=== PATIENT | male | born 1940 | race Caucasian/White ===

== ENCOUNTER → 2017-03-02 | Outpatient (CLI) | payer BC ==
[~2017-03-02] MED LIST: ASPCH81; FLNIN
[2017-03-02 09:52] LABS: ALT/SGPT 26 U/L (12-78); AST/SGOT 20 U/L (15-37); BLOOD UREA NITROGEN 15 mg/dl (7-18); CALCIUM 8.3 mg/dl (8.5-10.1); CARBON DIOXIDE 31 mmol/L (21-32); CHLORIDE 106 mmol/L (98-107); GLUCOSE 88 mg/dl (70-99); POTASSIUM 4.5 mmol/L (3.5-5.1); SODIUM 142 mmol/L (136-145)
[2017-03-02 09:54] LABS: CHOLESTEROL 130 mg/dl (0-200); HDL CHOLESTEROL 43 mg/dl; LDL CHOLESTEROL CALCULATED 75 mg/dl; TRIGLYCERIDES 59 mg/dl (0-150); VERY LOW DENSITY LIPOPROT CALC 12 mg/dl
== END | disposition home or self-care (01) ==
LOC: C.LAB1850 07:55
PROVIDERS: ATTEND Internal Medicine Cardiovascular Disease
DX: E78.00 Pure hypercholesterolemia, unspecified (principal); I10 Essential (primary) hypertension

== ENCOUNTER → 2017-08-28 | Outpatient (CLI) | payer BC ==
[2017-08-28 10:24] LABS: ALT/SGPT 29 U/L (12-78); AST/SGOT 25 U/L (15-37); BLOOD UREA NITROGEN 15 mg/dl (7-18); CALCIUM 8.6 mg/dl (8.5-10.1); CARBON DIOXIDE 29 mmol/L (21-32); CHLORIDE 104 mmol/L (98-107); CREATININE 1.18 mg/dl (0.60-1.40); GLUCOSE 89 mg/dl (70-99); POTASSIUM 4.4 mmol/L (3.5-5.1); SODIUM 137 mmol/L (136-145)
[2017-08-28 10:28] LABS: CHOLESTEROL 128 mg/dl (0-200); HDL CHOLESTEROL 42 mg/dl; LDL CHOLESTEROL CALCULATED 72 mg/dl; TRIGLYCERIDES 70 mg/dl (0-150); VERY LOW DENSITY LIPOPROT CALC 14 mg/dl
== END | disposition home or self-care (01) ==
LOC: C.LAB1850 08:44
PROVIDERS: ATTEND Internal Medicine Cardiovascular Disease
DX: I25.10 Atherosclerotic heart disease of native coronary artery without angina pectoris (principal); I10 Essential (primary) hypertension

== ENCOUNTER 2022-04-15 16:25 | Inpatient (IN) ==
[2022-04-15] MEDS ORDERED: SODIUM CHLORIDE 0.9% 250 ML IV PRN (17:00)
--- NOTE | 2022-04-15 17:03 | Emergency Department Note ---
Impression & Plan Severe anemia, MDS (myelodysplastic syndrome), Acute anemia ED Provider Note Name: KYLE LANDRY Age: 81 Sex: M Arrives Via: Walk-In Informant: Patient, ED Provider: Michael Lawson MD Chief Complaint: Anemia Impression: As per impressions above Medical Decision Makin-year-old male with recently diagnosed myelodysplastic syndrome and a history of CAD, hypertension, dyslipidemia, arrives for evaluation of severe anemia diagnosed on outpatient labs and advised to go to the ER by his primary care team. On evaluation patient is quite tired appearing, pale, though vitals are good and he is not complaining any significant chest pain or shortness of breath though does note he does get symptomatic with even mild exertion over the last few days. He is without any recent trauma he has a soft nontender abdomen and he denies any black or bloody stools. His last hemoglobin was done a little over a month ago and was 8 at that time and is now dropped down to 4.5. EKG obtained no acute ischemic findings and other laboratory work is not overly c oncerning. He is severely anemic though and clearly requires transfusion at this point. I discussed at length the risks benefits of transfusion with him and his and they are both comfortable with proceeding. He freely signed blood transfusion consent and he was typed and crossmatched for 2 units with the first being in the ER. He was monitored closely during transfusion and did quite well in fact stating he feels much better than he has in the last month before the first unit was even done. Following for his unit he is not overloaded he is breathing comfortably and his vitals are okay. We will proceed with second unit which was started and then he was transferred to the floor for further management. Hospitalist had evaluated him during transfusion and brought him in for further monitoring. Prior Medical Record and Triage/Nursing Notes reviewed by Me Additional history obtained from chart Differentials:Infection, dehydration, metabolic abnormality, hypo/hyperglycemia, electrolyte disturbance, anemia, hypoxia, cardiac sources, intracerebral event, toxicologic, neurologic, as well as other pathologies. Vital Signs: reviewed and remarkable for no significant abnormalities Interventions: 2 units PRBC IV Labs:Reviewed and remarkable for severe anemia EKG:Per My Interpretation: Indication severe anemia shortness of breath with exertion: NSR 70 bpm, qtc 457. No Ectopy. No Ischemia. Compared to EKG 5/4/22, no significant changes. Consults: Dr. Wilder MCKAY Hospitalist Plan: Disposition:Hospitalization. Condition: Good History of Present Illness:81-year-old male arrives for evaluation of low hemoglobin. Patient with a recent diagnosis of myelodysplastic syndrome and was to start treatments in the next few days however on pretreatment labs he was severely anemic and sent to the ER for evaluation. Patient notes he has been increasingly short of breath with any exertion. With sitting he feels better, but even with a brief exertion he gets severely short of breath. He notes he has been feeling weak to the point where he even had a collapsed to the floor a week ago without any fall or trauma other than disorder slowly going to the floor. He denies any headache, neck pain, bleeding, bruising, black/bloody stools, abdominal pain, epigastric discomfort, nausea, vomiting, syncope, chest pain, any other signs or symptoms. He has had no recent fevers, chills or infectious etiology. Exertion makes worse and rest makes better. No medications prior to arrival. Patient notes that his been dealing with bilateral leg swelling from below his knees for the last 6 months and it has not change much in the last few months. ROS: See above HPI for pertinent positives & negatives. A total of 10 systems reviewed and were otherwise negative. Past Medical History:CAD, hypertension, DLPa, dysplastic syndrome Past Surgical History:See Below Family History:See Below Social History:See Below Home Medications:See Below Allergies:acetaminophen Vitals:Blood Pressure: 112/68, Pulse 73, RR 16, T 36.8C, O2 99% on RA Physical Exam: GENERAL: Patient is tired appearing and in minimal distress. EYES: No scleral icterus, pale conjunctiva, unremarkable pupils. ENT: Mucous membranes moist, no nasal congestion. NECK: No masses appreciated, nomeningismus, trachea is midline. RESPIRATORY: No dyspnea. Clear to auscultation and equal bilaterally. No wheeze, no rhonchi. CARDIOVASCULAR: Regular rate and rhythm.No murmurs, rubs, gallops appreciated. GASTROINTESTINAL: Abdomen soft, non-tender, no peritonitis.Bowel sounds positive.No masses appreciated. BACK: No midline tenderness, no CVA tenderness EXTREMITIES: Normal motion all extremities, no cyanosis, 2+ edema pitting lower legs NEUROLOGIC: Alert and oriented, no acute motor or sensory deficits, no focal weakness, cranial nerves grossly intact. SKIN: No rash, no jaundice, no diaphoresis. PSYCH: Appropriate GCS: 15 ED Course: Times/Reassessments: Patient rapidly improving with initial transfusion and improving throughout. Michael Lawson MD Past Med/Surg History Medical History Abnormal CT scan, chest CAD (coronary artery disease) Hypercholesterolemia Hypertension MDS (myelodysplastic syndrome) Surgical History H/O cataract extraction bilateral History of bone marrow biopsy Hx of CABG 3-vessel, [facility] Family History Mother , in her 90s Parkinsons disease Social History (Updated 04/15/22 @ 19:17 by Esteban Hdz) Smoking Status: Never smoker Hx Alcohol Use: No Hx Substance Use: No Preferred Language: Indonesian Communication Ability: Effective Online Producer Required: Yes Beliefs That Will Affect Care: None marital status: Current Living Situation: Spouse current occupational status: retired 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 [employer] How many Children do You have: 4 How many Children do You have Comment: 1 son is Other Information That Helps Us Care for You: No Feels Safe at Home: Yes Safety Concerns: Feels Safe At This Time Assistive Devices: None Allergies Allergies Allergy/AdvReac Type Severity Reaction Status Date / Time acetaminophen [From Tylenol] AdvReac Unknown Rash--PT Verified 04/15/22 19:38 NOT SURE THIS IS A ALLERGY Home Meds Home Medications Medication Instructions Recorded Confirmed aspirin 325 mg tablet 325 mg PO DAILY 07/01/19 04/15/22 Epsom Salt Soak 1 ea topical QPM 04/15/22 04/15/22 Palmers Cream 1 applic topical QPM rash 04/15/22 04/15/22 Previous Rx's Medication Instructions Recorded pantoprazole 20 mg tablet,delayed 20 mg PO BID #180 tabs 09/03/21 release metoprolol succinate 25 mg 12.5 mg PO DAILY #90 tabs 11/02/21 tablet,extended release 24 hr simvastatin 40 mg tablet 40 mg PO QPM #90 tabs 11/02/21 melatonin 5 mg capsule 5 mg PO HS PRN sleep #30 caps 04/16/22 zinc sulfate 50 mg zinc (220 mg) 50 mg PO DAILY 12 days #12 caps 04/16/22 capsule Results & Data (ED) Vital Signs Vital Signs - 24 hr 04/15/22 16:29 04/15/22 18:40 04/15/22 18:00 Temperature 36.8 C 37.1 C Temperature Source Temporal Artery Scan Oral Pulse Rate 73 72 Pulse Rate [Apical] 67 Pulse Rhythm [Apical] Regular Respiratory Rate 16 16 16 Respiratory Effort / Characteristics Non-Labored Respiratory Depth Normal Blood Pressure 112/68 138/77 Blood Pressure [Left Arm] 138/77 Blood Pressure Mean 82 97 Blood Pressure Mean [Left Arm] 97 Blood Pressure Position Sitting Pulse Oximetry 99 97 96 Oxygen Delivery Method Room Air Room Air Sepsis Recent Fever Within 48 Hours No Sepsis New/Unexplained Change in Mental Status No Sepsis Action Taken by Nursing No Action Required 04/15/22 18:58 04/15/22 19:13 04/15/22 19:43 Temperature 36.4 C L 36.7 C Temperature Source Oral Oral Pulse Rate 74 70 75 Pulse Rate [Apical] Pulse Rhythm [Apical] Respiratory Rate 16 16 22 Respiratory Effort / Characteristics Respiratory Depth Blood Pressure 133/75 121/69 129/62 Blood Pressure [Left Arm] Blood Pressure Mean 94 86 84 Blood Pressure Mean [Left Arm] Blood Pressure Position Pulse Oximetry 99 98 95 Oxygen Delivery Method Sepsis Recent Fever Within 48 Hours Sepsis New/Unexplained Change in Mental Status Sepsis Action Taken by Nursing 04/15/22 20:48 04/15/22 21:08 04/15/22 21:23 Temperature 36.7 C 37.2 C Temperature Source Oral Oral Pulse Rate 72 84 72 Pulse Rate [Apical] Pulse Rhythm [Apical] Respiratory Rate 18 16 16 Respiratory Effort / Characteristics Respiratory Depth Blood Pressure 121/65 128/59 L 119/61 Blood Pressure [Left Arm] Blood Pressure Mean 83 82 80 Blood Pressure Mean [Left Arm] Blood Pressure Position Pulse Oximetry 95 93 95 Oxygen Delivery Method Sepsis Recent Fever Within 48 Hours Sepsis New/Unexplained Change in Mental Status Sepsis Action Taken by Nursing 04/15/22 21:38 04/15/22 22:08 Temperature 37.1 C 36.7 C Temperature Source Oral Oral Pulse Rate 72 70 Pulse Rate [Apical] Pulse Rhythm [Apical] Respiratory Rate 18 18 Respiratory Effort / Characteristics Respiratory Depth Blood Pressure 114/64 113/72 Blood Pressure [Left Arm] Blood Pressure Mean 80 85 Blood Pressure Mean [Left Arm] Blood Pressure Position Pulse Oximetry 96 95 Oxygen Delivery Method Sepsis Recent Fever Within 48 Hours Sepsis New/Unexplained Change in Mental Status Sepsis Action Taken by Nursing Laboratory Data Result diagrams: 04/16/22 08:56 04/16/22 08:56 Lab Results 04/15/22 04/15/22 04/15/22 Range/Units 14:56 17:17 17:17 WBC 5.19 (4.8-10.8) K/ul RBC 1.31 L (4.63-6.08) M/uL Hgb 4.3 L* (14.0-18.0) g/dl Hct 15.3 L* (40.1-51.0) % MCV 116.8 H (80.0-100.0) fL MCH 32.8 (25.0-34.0) pg MCHC 28.1 L (32.0-36.0) g/dL RDW Std Deviation 71.6 H (36.4-46.3) fL RDW Coeff of Dany 17.4 H (11.5-14.5) % Plt Count 96 L (130-400) K/uL MPV 11.7 (9.4-12.4) fL Immature Gran % (Auto) 6.4 % Neut % (Auto) 43.4 % Lymph % (Auto) 43.5 % [place] % (Auto) 6.7 % Eos % (Auto) 0.0 % Baso % (Auto) 0.0 % Neut # (Auto) 2.25 (1.4-6.5) K/uL Lymph # (Auto) 2.26 (1.2-3.4) K/uL [place] # (Auto) 0.35 (0.24-0.82) K/uL Eos # (Auto) 0.00 (0-0.50) K/uL Baso # (Auto) 0.00 (0-0.2) K/uL Immature Gran # (Auto) 0.33 H (0.00-0.02) K/uL Absolute Nucleated RBC 0.28 H (0-0) K/uL Nucleated RBC % (auto) 5.4 % Sodium (136-145) mmol/L Potassium (3.5-5.1) mmol/L Chloride (98-107) mmol/L Carbon Dioxide (21-32) mmol/L Anion Gap (3-11) BUN (6-23) mg/dl Creatinine (0.6-1.4) mg/dl Est Cr Clr Drug Dosing ml/min Est GFR ( Amer) ml/min Est GFR (Non-Af Amer) ml/min BUN/Creatinine Ratio (10-20) Glucose (70-99(Fasting)) mg/dl Calcium (8.5-10.1) mg/dl Magnesium (1.7-2.4) mg/dl Total Bilirubin (0.2-1.0) mg/dl Direct Bilirubin (0-0.2) mg/dl AST (13-39) U/L ALT (7-52) U/L Alkaline Phosphatase (34-104) U/L Troponin I High Sens (0-20) pg/ml Total Protein (6.0-8.3) gm/dl Albumin (3.4-5.0) gm/dl SARS-CoV-2, RNA, NAAT (NEGATIVE) Blood Type A Negative Blood Type Recheck A Negative Antibody Screen NEGATIVE Crossmatch See Detail 04/15/22 04/15/22 Range/Units 17:17 18:07 WBC (4.8-10.8) K/ul RBC (4.63-6.08) M/uL Hgb (14.0-18.0) g/dl Hct (40.1-51.0) % MCV (80.0-100.0) fL MCH (25.0-34.0) pg MCHC (32.0-36.0) g/dL RDW Std Deviation (36.4-46.3) fL RDW Coeff of Dany (11.5-14.5) % Plt Count (130-400) K/uL MPV (9.4-12.4) fL Immature Gran % (Auto) % Neut % (Auto) % Lymph % (Auto) % [place] % (Auto) % Eos % (Auto) % Baso % (Auto) % Neut # (Auto) (1.4-6.5) K/uL Lymph # (Auto) (1.2-3.4) K/uL [place] # (Auto) (0.24-0.82) K/uL Eos # (Auto) (0-0.50) K/uL Baso # (Auto) (0-0.2) K/uL Immature Gran # (Auto) (0.00-0.02) K/uL Absolute Nucleated RBC (0-0) K/uL Nucleated RBC % (auto) % Sodium 136 (136-145) mmol/L Potassium 3.9 (3.5-5.1) mmol/L Chloride 108 H (98-107) mmol/L Carbon Dioxide 23 (21-32) mmol/L Anion Gap 5 (3-11) BUN 26 H (6-23) mg/dl Creatinine 1.49 H (0.6-1.4) mg/dl Est Cr Clr Drug Dosing 40.1 ml/min Est GFR ( Amer) 50.3 ml/min Est GFR (Non-Af Amer) 43.4 ml/min BUN/Creatinine Ratio 17.4 (10-20) Glucose 77 (70-99(Fasting)) mg/dl Calcium 8.0 L (8.5-10.1) mg/dl Magnesium 2.2 (1.7-2.4) mg/dl Total Bilirubin 0.4 (0.2-1.0) mg/dl Direct Bilirubin 0.0 (0-0.2) mg/dl AST 19 (13-39) U/L ALT 10 (7-52) U/L Alkaline Phosphatase 74 (34-104) U/L Troponin I High Sens 10.5 (0-20) pg/ml Total Protein 7.4 (6.0-8.3) gm/dl Albumin 3.4 (3.4-5.0) gm/dl SARS-CoV-2, RNA, NAAT NEGATIVE (NEGATIVE) Blood Type Blood Type Recheck Antibody Screen Crossmatch Administered Medications Discontinued Medications Furosemide (Furosemide Inj 20 Mg/2 Ml Vial) 20 mg IV 0000 MARGO Stop: 04/16/22 04:00 Last Admin: 04/16/22 01:10 Dose: 20 mg Documented By: BPY Furosemide (Furosemide 20 Mg Tab) 20 mg PO NOW ONE Stop: 04/16/22 14:17 Last Admin: 04/16/22 15:58 Dose: 20 mg Documented By: ES Metoprolol Succinate (Metoprolol Succ 25mg Ext Rel Tab) 12.5 mg PO DAILY MARGO Stop: 05/16/22 08:59 Last Admin: 04/16/22 08:36 Dose: 12.5 mg Documented By: RIC Pantoprazole Sodium (Pantoprazole 40 Mg Tab) 40 mg PO BID MARGO Stop: 05/15/22 23:14 Last Admin: 04/16/22 08:36 Dose: 40 mg Documented By: Admin: 04/16/22 01:10 Dose: 40 mg Documented By: YOANDY Potassium Chloride (Potassium Chloride Crtab 20 Meq Tabcr) 20 meq PO NOW STA Stop: 04/16/22 14:17 Last Admin: 04/16/22 15:58 Dose: 20 meq Documented By: RIC Simvastatin (Simvastatin 40 Mg Tab) 40 mg PO QPM MARGO Stop: 05/15/22 23:14 Last Admin: 04/16/22 01:11 Dose: 40 mg Documented By: YOANDY Zinc Sulfate (Zinc Sulfate 220 Mg Capsule) 220 mg PO QAM MARGO Stop: 05/15/22 23:14 Last Admin: 04/16/22 08:36 Dose: 220 mg Documented By: Admin: 04/16/22 01:12 Dose: 220 mg Documented By: YOANDY Imaging Data Radiologist's Impression: Chest X-Ray 04/15/22 19:22 XR chest 2V PA/lateral HISTORY: b/l basilar rales COMPARISON: Chest 12/19/2021. FINDINGS: No pneumothorax. No pleural effusions. The heart remains mildly enlarged. There are poststernotomy changes. Old, healed left-sided rib fractures. The upper lung zones remain clear. Interstitial thickening and hazy bibasilar airspace opacities have slightly progressed. No evidence for pulmonary edema. IMPRESSION: 1. Mild interstitial thickening and hazy bibasilar airspace opacities have slightly progressed. This likely represents a pneumonia. 2. Stable cardiomegaly. ACT 112: Negative or not required by law. Electronically signed by: Bharat Bowen M.D. 04/15/2022 8:02 PM Discharge Plan Visit Data Chief Complaint: Referred by Doctor Stated Complaint: [facility] ED Provider: Michael Lawson Discharge Problem: Severe anemia, MDS (myelodysplastic syndrome), Acute anemia Patient Disposition: Admitted As Inpatient Discharge Instructions Interventions: ED Discharge Assessment Last Done: 04/15/22 22:50
[2022-04-15 17:37] LABS: White Blood Count 5.19 K/ul (4.8-10.8)
[2022-04-15 17:45] LABS: Hematocrit (blood only) 15.3 % (40.1-51.0); Hemoglobin 4.3 g/dl (14.0-18.0)
[2022-04-15 17:54] LABS: Albumin Level 3.4 gm/dl (3.4-5.0); BUN Creatinine Ratio 17.4 (10-20); Bilirubin,Total 0.4 mg/dl (0.2-1.0); Creatinine Clr Calc Pharmacy 40.1 ml/min; Est GFR (African American) 50.3 ml/min; Est GFR (Non-African American) 43.4 ml/min; Magnesium 2.2 mg/dl (1.7-2.4); Potassium 3.9 mmol/L (3.5-5.1); Total Protein 7.4 gm/dl (6.0-8.3)
[2022-04-15 17:56] LABS: Troponin I High Sensitivity 10.5 pg/ml (0-20)
[2022-04-15 18:15] LABS: Immature Granulocytes # (auto) 0.33 K/uL (0.00-0.02); Immature Granulocytes % (auto) 6.4 %; Lymphocytes # (auto) 2.26 K/uL (1.2-3.4); Lymphocytes % (auto) 43.5 %; Mean Corpuscular Hemoglobin 32.8 pg (25.0-34.0); Mean Corpuscular Hgb Conc 28.1 g/dL (32.0-36.0); Mean Corpuscular Volume 116.8 fL (80.0-100.0); Mean Platelet Volume 11.7 fL (9.4-12.4); Monocytes # (auto) 0.35 K/uL (0.24-0.82); Monocytes % (auto) 6.7 %; Neutrophils # (auto) 2.25 K/uL (1.4-6.5); Neutrophils % (auto) 43.4 %; Nucleated RBC # (auto) 0.28 K/uL (0-0); Nucleated RBC % (auto) 5.4 %; Platelet Count 96 K/uL (130-400); RDW Coefficient of Variation 17.4 % (11.5-14.5); RDW Standard Deviation 71.6 fL (36.4-46.3); Red Blood Count 1.31 M/uL (4.63-6.08)
--- NOTE | 2022-04-15 18:15 | History & Physical Report ---
Date of Service April 15, 2022 Assessment & Plan (1) Symptomatic anemia: Plan: Patient has severe acute/chronic symptomatic anemia as noted throughout the HPI. Baseline Hb is about 8 to 8.5. He has a recent diagnosis of MDS based on bone marrow biopsy. [facility] from earlier in March showed normal B12, folate, and copper levels. His recent TSH was also wnl (January 2022). His acute anemia is likely due to the MDS itself but I cannot rule out other causes such as GI bleeding (he takes daily aspirin as well as 2 excedrin migraine tabs which could set him up for gastritis or PUD). There is no evidence of hemolysis. Plan - * Tx 2 units PRBCs now followed by lasix 20mg IV x 1 * repeat H/H 1 hour post-transfusion * given his significant symptoms (fatigue, dyspnea, etc) along with known coronary artery disease would Tx a 3rd unit if Hb remains <7.5 on recheck * check fecal occult blood * will ask Dr Mistry from [facility] to see him in the am for any additional recommendations * consider IV iron (2) MDS (myelodysplastic syndrome): Plan: Recent diagnosis. Bone marrow bx confirmed (02/2022). B12/folate/copper/TSH levels all wnl. There were 11% blasts on his bone marrow biopsy along with abnormal T cells. All together there is some concern about possible lymphoma as well. Office notes from 04/07/22 discussed initiating 5-azacitibine or decitabine. Will consult Dr Mistry in the am. Transfuse as in #1 above. Consider IV venofer given his low ferritin 33 and absent iron stores on bone marrow biopsy. Defer that decision to Dr Mistry. Repeat full CBC in am. (3) Hypercholesterolemia: Plan: Continue statin. (4) Hypertension: Plan: Continue metoprolol succinate 12.5mg daily. (5) CAD (coronary artery disease): Plan: Some of his exertional symptoms could be from his CAD in the setting of severe acute/chronic anemia. Near-term plan -- transfuse PRBCs. His EKG is stable, however. Continue low-dose BB. Continue statin. Hold aspirin for now until GI bleeding is ruled out. (6) Dyspnea on exertion: Plan: Likely from his severe anemia but can't rule out ischemic heart disease contributing to such. See discussion above. (7) Zinc deficiency: Plan: Could be contributing to chronic rash on his feet. Either way will Rx with zinc sulfate 220mg daily x 14 days. (8) Thrombocytopenia: Plan: 2nd to MDS. B12, folate all wnl. No etoh use. Not on meds that would typically cause low platelets. Trend. (9) DVT prophylaxis: Plan: Due to concern for occult blood loss defer on chemical DVT proph at this time until fecal occult blood is obtained. SCDs in meantime. Plan Left message for pt's on their home voicemail. History of Present Illness Chief Complaint: severe anemia, fatigue/dyspnea with activity Primary Care Provider: Rachid Zamora MD Pleasant 81yo male with history of CAD s/p CABG 3-vessel, hyperlipidemia, and recently diagnosed MDS presents from the [facility] after outpatient blood work revealed a hemoglobin of <5. Patient states he was recently diagnosed with MDS and in early March several treatment options were discussed. He went to the Cancer Center today as a preparatory appointment to begin his MDS treatment next week and during such the severe anemia was found. He was promptly sent to the ER for work-up and gokul tment. Patient states that for about 1 week he has had notable dyspnea on exertion much above his baseline. Typically he can walk about 100-150 feet without much limitation, but over the last week he could only walk half this distance before having to stop and rest because of fatigue/dyspnea. He denies any associated chest pressure to pain. No dizziness or lightheadedness. He denies any abdominal pain, melena, BRBPR or nausea/emesis. Denies hematemesis. Allergies Allergy/AdvReac Type Severity Reaction Status Date / Time acetaminophen [From Tylenol] AdvReac Unknown Rash--PT Verified 04/15/22 19:38 NOT SURE THIS IS A ALLERGY Home Medications Medication Instructions Recorded Confirmed Type aspirin 325 mg tablet 325 mg PO DAILY 07/01/19 04/15/22 History pantoprazole 20 mg tablet,delayed 20 mg PO BID #180 tabs 09/03/21 04/15/22 Rx release metoprolol succinate 25 mg 12.5 mg PO DAILY #90 tabs 11/02/21 04/15/22 Rx tablet,extended release 24 hr simvastatin 40 mg tablet 40 mg PO QPM #90 tabs 11/02/21 04/15/22 Rx Epsom Salt Soak 1 ea topical QPM 04/15/22 04/15/22 History Palmers Cream 1 applic topical QPM rash 04/15/22 04/15/22 History hshikab-[id number]-[id number] 250 2 tab PO QAM 04/15/22 04/15/22 History mg-250 mg-65 mg tablet (Excedrin Migraine) Past Med/Surg History Medical History (Updated 04/15/22 @ 19:23 by Esteban Hdz) Abnormal CT scan, chest CAD (coronary artery disease) Hypercholesterolemia Hypertension MDS (myelodysplastic syndrome) Surgical History (Updated 04/15/22 @ 19:16 by Esteban Hdz) H/O cataract extraction bilateral History of bone marrow biopsy Hx of CABG 3-vessel, [facility] Family History (Updated 04/15/22 @ 19:16 by Esteban Hdz) Mother , in her 90s Parkinsons disease Social History (Updated 04/15/22 @ 19:17 by Esteban Hdz) Smoking Status: Never smoker Hx Alcohol Use: No Hx Substance Use: No Preferred Language: Urdu Communication Ability: Effective Director Sales Required: No Beliefs That Will Affect Care: None marital status: Current Living Situation: Spouse current occupational status: retired 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 [employer] How many Children do You have: 4 How many Children do You have Comment: 1 son is Other Information That Helps Us Care for You: No Feels Safe at Home: Yes Safety Concerns: Feels Safe At This Time Assistive Devices: Glasses Review of Systems Review of Systems: gen - no fevers, chills or weight loss; good appetite eyes - no visual changes HENT - no hearing changes, dysphagia, sore throat, runny nose neck - no pain CV - no chest pain, some palpitations with peak activity, no orthopnea; chronic edema - present since 05/2021 pulm - severe dyspnea on exertion; no cough GI - no abd pain, rectal bleeding, melena, nausea, emesis, diarrhea - no dysuria musculo - denies joint pains skin - chronic rash on b/l feet - mainly dorsum of feet neuro - takes excedrin 2 tabs daily for chronic headaches (usually every AM) for several months endo - denies diabetes psych - has had recent "brain fog" last few days Physical Exam Physical Exam: gen - NAD, pleasant skin - erythematous rashes, macular with some scale - dorsum feet b/l; SEVERE pallor eyes - pallor, PERRL, lens implants b/l HENT - TMs not seen due to cerumen; nose clear; mouth with MMM but mucosal pallor present neck - no JVD, no masses heart - RRR, s1 s2, 1/6 MACIEL LSB lungs - fine dry rales R base only abd - soft NT ND BS+; no HSM ext - 1+ edema b/l, pulses 2+ b/l neuro - strength 5/5 x 4 exts; DTRs 2+ b/l upper & lower ext psych - a/o x 3 lymph - no cervical lymph nodes b/l Results & Data Results & Data ([facility]) Vital Signs (Past 12 Hours) Vital Signs Temp Pulse Resp BP Pulse Ox O2 Del Method 04/15/22 16:29 36.8 C 73 16 112/68 99 Room Air Laboratory Results Laboratory Results - last 24 hr 04/15/22 04/15/22 04/15/22 14:56 17:17 17:17 WBC 5.19 RBC 1.31 L Hgb 4.3 L* Hct 15.3 L* MCV 116.8 H MCH 32.8 MCHC 28.1 L RDW Std Deviation 71.6 H RDW Coeff of Dany 17.4 H Plt Count 96 L MPV 11.7 Immature Gran % (Auto) 6.4 Neut % (Auto) 43.4 Lymph % (Auto) 43.5 Kinney % (Auto) 6.7 Eos % (Auto) 0.0 Baso % (Auto) 0.0 Neut # (Auto) 2.25 Lymph # (Auto) 2.26 Kinney # (Auto) 0.35 Eos # (Auto) 0.00 Baso # (Auto) 0.00 Immature Gran # (Auto) 0.33 H Absolute Nucleated RBC 0.28 H Nucleated RBC % (auto) 5.4 Sodium Potassium Chloride Carbon Dioxide Anion Gap BUN Creatinine Est Cr Clr Drug Dosing Est GFR ( Amer) Est GFR (Non-Af Amer) BUN/Creatinine Ratio Glucose Calcium Magnesium Total Bilirubin Direct Bilirubin AST ALT Alkaline Phosphatase Troponin I High Sens Total Protein Albumin SARS-CoV-2, RNA, NAAT Blood Type A Negative Blood Type Recheck A Negative Antibody Screen NEGATIVE Crossmatch See Detail 04/15/22 04/15/22 17:17 18:07 WBC RBC Hgb Hct MCV MCH MCHC RDW Std Deviation RDW Coeff of Dany Plt Count MPV Immature Gran % (Auto) Neut % (Auto) Lymph % (Auto) Kinney % (Auto) Eos % (Auto) Baso % (Auto) Neut # (Auto) Lymph # (Auto) Kinney # (Auto) Eos # (Auto) Baso # (Auto) Immature Gran # (Auto) Absolute Nucleated RBC Nucleated RBC % (auto) Sodium 136 Potassium 3.9 Chloride 108 H Carbon Dioxide 23 Anion Gap 5 BUN 26 H Creatinine 1.49 H Est Cr Clr Drug Dosing 40.1 Est GFR ( Amer) 50.3 Est GFR (Non-Af Amer) 43.4 BUN/Creatinine Ratio 17.4 Glucose 77 Calcium 8.0 L Magnesium 2.2 Total Bilirubin 0.4 Direct Bilirubin 0.0 AST 19 ALT 10 Alkaline Phosphatase 74 Troponin I High Sens 10.5 Total Protein 7.4 Albumin 3.4 SARS-CoV-2, RNA, NAAT NEGATIVE Blood Type Blood Type Recheck Antibody Screen Crossmatch Diagnostic Findings EKG - my reading - NSR, no ST changes Code Status & VTE Plan Code Status full code PG Care Time/CCT Total # of Minutes Spent Total Time Spent with Patient: Total time spent is greater than 50% in coordination of care (as documented) at patient's floor/unit and/or counseling patient: Coding Level of Care Code 75088 Initial Inpt Care Lvl 2 Diagnoses Symptomatic anemia D64.9 MDS (myelodysplastic syndrome) D46.9 Hypercholesterolemia E78.00 Hypertension I10 CAD (coronary artery disease) I25.10 Dyspnea on exertion R06.00 Zinc deficiency E60 Thrombocytopenia D69.6 DVT prophylaxis Z29.9
--- NOTE | 2022-04-15 20:04 | XRay Report ---
XR chest 2V PA/lateral HISTORY: b/l basilar rales COMPARISON: Chest 12/19/2021. FINDINGS: No pneumothorax. No pleural effusions. The heart remains mildly enlarged. There are postste rnotomy changes. Old, healed left-sided rib fractures. The upper lung zones remain clear. Interstitia l thickening and hazy bibasilar airspace opacities have slightly progressed. No evidence for pulmonar y edema. IMPRESSION: 1. Mild interstitial thickening and hazy bibasilar airspace opacities have slightly progressed. This likely represents a pneumonia. 2. Stable cardiomegaly. ACT 112: Negative or not required by law. Electronically signed by: Bharat Bowen M.D. 04/15/2022 8:02 PM
[2022-04-15] MEDS ORDERED: ONDANSETRON INJ 2 MG/ML 2 ML VIAL IV PRN (23:15)
[2022-04-15] MEDS ORDERED: SIMVASTATIN 40 MG TAB PO SCH (23:15)
[2022-04-15] MEDS ORDERED: NITROGLYCERIN SL 0.4 MG/TAB TAB SL PRN (23:15)
[2022-04-15] MEDS ORDERED: ACETAMINOPHEN 325 MG TAB PO PRN (23:15)
[2022-04-16] MEDS ORDERED: FUROSEMIDE INJ 20 MG/2 ML VIAL IV SCH
[2022-04-16] MEDS: PANTOprazole 40 MG TAB PO SCH ×2 (01:10→08:36)
[2022-04-16] MEDS: ZINC SULFATE 220 MG CAPSULE PO SCH ×2 (01:12→08:36)
[2022-04-16 01:17] LABS: Hematocrit (blood only) 21.6 % (40.1-51.0); Hemoglobin 6.4 g/dl (14.0-18.0)
[2022-04-16] MEDS ORDERED: SODIUM CHLORIDE 0.9% 250 ML IV PRN ×2 (01:53→13:37)
[2022-04-16] MEDS ORDERED: METOPROLOL SUCC 25MG EXT REL TAB PO SCH (09:00)
[2022-04-16 09:25] LABS: Hemoglobin 7.3 g/dl (14.0-18.0); Mean Corpuscular Hemoglobin 30.2 pg (25.0-34.0); Mean Corpuscular Hgb Conc 30.4 g/dL (32.0-36.0); Mean Corpuscular Volume 99.2 fL (80.0-100.0); Mean Platelet Volume 12.6 fL (9.4-12.4); Nucleated RBC # (auto) 0.41 K/uL (0-0); Nucleated RBC % (auto) 5.3 %; Platelet Count 69 K/uL (130-400); RDW Coefficient of Variation 22.5 % (11.5-14.5); RDW Standard Deviation 79.7 fL (36.4-46.3); Red Blood Count 2.42 M/uL (4.63-6.08); White Blood Count 7.67 K/ul (4.8-10.8)
[2022-04-16 09:57] LABS: BUN Creatinine Ratio 14.9 (10-20); Calcium 7.7 mg/dl (8.5-10.1); Creatinine Clr Calc Pharmacy 40.4 ml/min; Est GFR (African American) 50.7 ml/min; Est GFR (Non-African American) 43.7 ml/min; Potassium 3.8 mmol/L (3.5-5.1)
[2022-04-16] MEDS ORDERED: POTASSIUM CHLORIDE CRTAB 20 MEQ TABCR PO STA (14:16)
[2022-04-16] MEDS ORDERED: FUROSEMIDE 20 MG TAB PO ONE (14:16)
--- NOTE | 2022-04-16 16:11 | Discharge Summary ---
Date of Service April 16, 2022 Admission HPI Per Admitting Provider Pleasant 81yo male with history of CAD s/p CABG 3-vessel, hyperlipidemia, and recently diagnosed MDS presents from the [facility] after outpatient blood work revealed a hemoglobin of <5. Patient states he was recently diagnosed with MDS and in early March several treatment options were discussed. He went to the Cancer Center today as a preparatory appointment to begin his MDS treatment next week and during such the severe anemia was found. He was promptly sent to the ER for work-up and treatment. Patient states that for about 1 week he has had notable dyspnea on exertion much above his baseline. Typically he can walk about 100-150 feet without much limitation, but over the last week he could only walk half this distance before having to stop and rest because of fatigue/dyspnea. He denies any associated chest pressure to pain. No dizziness or lightheadedness. He denies any abdominal pain, melena, BRBPR or nausea/emesis. Denies hematemesis. Discharge Data Allergies Allergy/AdvReac Type Severity Reaction Status Date / Time acetaminophen [From Tylenol] AdvReac Unknown Rash--PT Verified 04/15/22 19:38 NOT SURE THIS IS A ALLERGY Consultations 04/15/22 18:10 ED Decision to Admit Stat Hospital Course (1) Symptomatic anemia: Patient has severe acute/chronic symptomatic anemia as noted throughout the HPI. Baseline Hb is about 8 to 8.5. He has a recent diagnosis of MDS based on bone marrow biopsy. Outpatient records from the [facility] from earlier in March showed normal B12, folate, and copper levels. His recent TSH was also wnl (January 2022). His acute anemia is likely due to the MDS itself but I cannot rule out other causes such as GI bleeding (he takes daily aspirin as well as 2 excedrin migraine tabs which could set him up for gastritis or PUD). There is no evidence of hemolysis. Plan - * Tx 2 units PRBCs now followed by lasix 20mg IV x 1 * repeat H/H 1 hour post-transfusion * given his significant symptoms (fatigue, dyspnea, etc) along with known coronary artery disease would Tx a 3rd unit if Hb remains <7.5 on recheck * check fecal occult blood * will ask Dr Mistry from [facility] to see him in the am for any additional recommendations * consider IV iron (2) MDS (myelodysplastic syndrome): Recent diagnosis. Bone marrow bx confirmed (02/2022). B12/folate/copper/TSH levels all wnl. There were 11% blasts on his bone marrow biopsy along with abnormal T cells. All together there is some concern about possible lymphoma as well. Office notes from 04/07/22 discussed initiating 5-azacitibine or decitabine. Will consult Dr Mistry in the am. Transfuse as in #1 above. Consider IV venofer given his low ferritin 33 and absent iron stores on bone marrow biopsy. Defer that decision to Dr Mistry. Repeat full CBC in am. (3) Hypercholesterolemia: Continue statin. (4) Hypertension: Continue metoprolol succinate 12.5mg daily. (5) CAD (coronary artery disease): Some of his exertional symptoms could be from his CAD in the setting of severe acute/chronic anemia. Near-term plan -- transfuse PRBCs. His EKG is stable, however. Continue low-dose BB. Continue statin. Hold aspirin for now until GI bleeding is ruled out. (6) Dyspnea on exertion: Likely from his severe anemia but can't rule out ischemic heart disease contributing to such. See discussion above. (7) Zinc deficiency: Could be contributing to chronic rash on his feet. Either way will Rx with zinc sulfate 220mg daily x 14 days. (8) Thrombocytopenia: 2nd to MDS. B12, folate all wnl. No etoh use. Not on meds that would typically cause low platelets. Trend. (9) DVT prophylaxis: Due to concern for occult blood loss defer on chemical DVT proph at this time until fecal occult blood is obtained. SCDs in meantime. Plan Left message for pt's on their home voicemail. Discharge Plan Discharge Items Patient Disposition: Home - Self-Care Reason For Visit: SYMPTOMATIC ANEMIA Discharge Diagnosis: 1. severe, symptomatic anemia - 4 units of blood given 2. MDS (myelodysplastic syndrome) 3. iron deficiency 4. zinc deficiency 5. low platelets due to your MDS condition Activity: As commented below Activity Comment: light activities as tolerated; avoid strenuous activities Sexual Activity: Wait until after follow-up appointment Exercise/Sports: Wait until after follow-up appointment Driving/Machine Use: Resume 1 day after discharge Non-emergency contact: Primary Care Provider and Oncologist Call non-emergency contact if: you have any medication questions, your symptoms worsen and you have a fever Follow-up/Referrals: Rachid Zamora MD [Primary Care Provider] - (1 week to discuss sleep, headaches, etc.) Luzma Mistry MD [Physician] - (see Dr Mistry or her partners within the next week as scheduled ) Diet: Heart Healthy Addtl Attending Provider Instructions: Dr Colby, You were hospitalized for severe, symptomatic anemia. Your presenting hemoglobin was 4.5. Your anemia is due to the recently diagnosed myelodysplastic syndrome (MDS). The stool was checked for blood and returned negative for such. Recent outpatient vitamin B12, folate, and copper levels were normal. Your recent bone marrow biopsy showed evidence of iron deficiency which is also likely contributing to your anemia. You received a total of 4 units of blood and you tolerated this well. Although your platelets are low (from the MDS) they are acceptable at this time. Your kidney function and electrolytes were normal while here. Recent outpatient blood work did show mild zinc deficiency which could be contributing to your rash on your feet. You received 2 doses of zinc while here. Recommendations - 1. take zinc once daily for 12 additional days. You can start this tomorrow, 04/17/22. I sent a prescription to your pharmacy for you. 2. please follow-up with Dr Mistry within the next 5-7 days to discuss your treatment for your MDS. 3. please discuss iron infusions with Dr Mistry for your iron deficiency. 4. follow-up with Dr Zamora to discuss the chronic headaches and your chronic sleep issues. 5. I would try to avoid taking the Excedrin Migraine on a daily basis. Would use tylenol [id number] instead, if possible. 6. consider taking mamt-qbs-[id number] melatonin 5mg at bedtime as desired for sleep. 7. take it easy and avoid strenuous activities at this time given the anemia, your heart condition, the hot weather outside, etc. Follow-up - see separate section Return to [facility] if - * you have chest pains * you have worsening shortness of breath * you have severe dizziness, lightheadedness, or feel like you could pass out * you have extreme weakness or fatigue * you have fevers over 100 degrees * any other concerns It was our pleasure to care for you at [facility]! Continue to feel better, Esteban Hdz Pending Studies at Discharge: No Stand-Alone Forms: My [facility], Smoking Cessation Medications and DC Order Prescriptions: New zinc sulfate 50 mg zinc (220 mg) capsule 50 mg PO DAILY 12 Days Qty: 12 0RF melatonin 5 mg capsule 5 mg PO HS PRN (Reason: sleep) Qty: 30 0RF Rx Instructions: purchase [id number] Continued pantoprazole 20 mg tablet,delayed release (DR/EC) 20 mg PO BID Qty: 180 3RF simvastatin 40 mg tablet 40 mg PO QPM Qty: 90 3RF metoprolol succinate 25 mg tablet extended release 24 hr 12.5 mg PO DAILY Qty: 90 3RF aspirin 325 mg tablet 325 mg PO DAILY Epsom Salt Soak 1 ea topical QPM Palmers Cream 1 applic topical QPM Discontinued Excedrin Migraine 250-250-65 mg Tablet 2 tab PO QAM Discharge Orders: Discharge Order (Routine); Ordered 04/16/22 Ordered By: Esteban Hdz Admission Data Admit Date/Time: 04/15/22 18:16 Attending Provider: Esteban Hdz Admit Provider: sEteban Hdz Primary Care Provider: Rachid Zamora Other Providers: Esteban Hdz Other Interventions: Discharge Summary Assessment (RN) Last Done: 04/16/22 14:47 Coding Diagnoses Symptomatic anemia D64.9 MDS (myelodysplastic syndrome) D46.9 Hypercholesterolemia E78.00 Hypertension I10 CAD (coronary artery disease) I25.10 Dyspnea on exertion R06.00 Zinc deficiency E60 Thrombocytopenia D69.6 DVT prophylaxis Z29.9
--- NOTE | 2022-04-16 16:39 | Electrocardiogram Report ---
Test Reason : Blood Pressure : / mmHG Vent. Rate : 070 BPM Atrial Rate : 070 BPM P-R Int : 164 ms QRS Dur : 088 ms QT Int : 424 ms P-R-T Axes : 062 -22 026 degrees QTc Int : 457 ms Normal sinus rhythm Normal ECG When compared with ECG of 29-JAN-2022 19:39, Premature atrial complexes are no longer Present Confirmed by Rachid Hammond ([id number]) on 04/16/2022 4:39:24 PM Referred By: Luzma Mistry Confirmed By:Rachid Hammond
== END 2022-04-16 16:30 | disposition home or self-care (01) | DRG 812 ==
LOC: ED 16:25 → 2S 18:16

== ENCOUNTER 2023-04-03 19:28 | Inpatient (IN) ==
[2023-04-03 20:55] LABS: Albumin Globulin Ratio 1.3 (0.9-2); Albumin Level 3.4 gm/dl (3.4-5.0); BUN Creatinine Ratio 35.8 (10-20); Bilirubin,Total 1.2 mg/dl (0.2-1.0); Calcium 8.2 mg/dl (8.6-10.3); Creatinine Clr Calc Pharmacy 41.1 ml/min; Est GFR (Non-African American) 54.3 ml/min; Globulin 2.7 gm/dl (2.5-4.0); Potassium 4.3 mmol/L (3.5-5.1); Total Protein 6.1 gm/dl (6.0-8.3)
[2023-04-03 21:02] LABS: Troponin I High Sensitivity 18.8 pg/ml (0-20)
[2023-04-03 21:22] LABS: Hematocrit (blood only) 17.6 % (42.0-52.0); Mean Corpuscular Hgb Conc 34.1 g/dL (32.0-36.0); Mean Corpuscular Volume 96.7 fL (80.0-100.0); Platelet Count 0 K/uL (130-400); RDW Coefficient of Variation 18.1 % (11.5-14.5); RDW Standard Deviation 61.6 fL (36.4-46.3); Red Blood Count 1.82 M/uL (4.70-6.10); White Blood Count 0.49 K/ul (4.8-10.8)
[2023-04-03 21:34] LABS: INR 1.1 (0.9-1.1); Partial Thromboplastin Ratio 1.1; Partial Thromboplastin Time 30.1 Seconds (21.0-31.0); Prothrombin Time 11.5 Seconds (9.0-12.0)
[2023-04-03] MEDS ORDERED: SODIUM CHLORIDE 0.9% 1000ML 500 ML IV ONE (22:04)
[2023-04-03] MEDS ORDERED: SODIUM CHLORIDE 0.9% 250 ML IV PRN (22:04)
[2023-04-03 22:33] LABS: Magnesium 1.8 mg/dl (1.7-2.4)
--- NOTE | 2023-04-03 22:55 | XRay Report ---
SINGLE VIEW CHEST CLINICAL HISTORY: Dyspnea FINDINGS: An AP, portable, upright chest radiograph is compared to study dated 11/28/2022. Correlation is made with chest CT dated 01/08/2022. The patient is status post midline sternotomy. A right subclav brunilda central venous catheter is new from previous. The heart is enlarged noting atherosclerotic calcif ication of the thoracic aorta. The pulmonary vasculature is noncongested. Bibasilar opacities are sim ilar to previous. No large pleural effusion or pneumothorax is seen. The skeletal structures are oste openic. There are chronic/healed left-sided rib fractures. IMPRESSION: 1. Cardiomegaly without radiographic evidence of congestive failure. 2. Bibasilar opacities are unchanged this could represent scarring/atelectasis/changes of chronic earnestine g disease. Correlate clinically for evidence of a superimposed pneumonitis. Follow-up radiographicall y as needed. ACT 112: Negative or not required by law. Electronically signed by: Vikas Al M.D. 04/03/2023 10:54 PM
--- NOTE | 2023-04-03 23:46 | History & Physical Report ---
Date of Service April 03, 2023 Assessment & Plan (1) Severe thrombocytopenia: Plan: 82 M with myelodysplastic syndrome currently on chemotherapy who presents to the ER from outpatient clinic with anemia. Admitted to the hospital for pancytopenia marked by severe thrombocytopenia and anemia. Pancytopenia -Discovered on outpatient labs. Occurring in the setting of ongoing chemotherapy for AML/myelodysplastic syndrome. Follows with Dr. Kwong of [facility] and Dr. [place] [facility] -WBC 0.49, hemoglobin 6.1, platelet count-0 on admission. Patient hemodynamically stable. -Anemia mildly symptomatic with mild shortness of breath. Saturating well on room air. -S/p 1 unit pRBC, platelet pheresis in the ED on admission. Case discussed with oncologist, who is aware and recommended admission for further management. * Admit to [facility] * Neutropenic precautions ordered. * Cancer Center (oncology) consult placed. * Vitamin B complex * Trend CBC. Transfusion/platelet pheresis support as needed Acute myeloid leukemia/MDS -Chronic; sees Dr. Kwong and [place]. Obrien [place] [facility] Completed latest cycle of chemotherapy (2 weeks on, 2 weeks off) last month with azacitidine/venetoclax. -Bone marrow biopsy from 03/04/2022: Myelodysplastic syndrome with excess blasts- 2, hypercellular marrow with trilineage hematopoiesis, hemophagocytosis and absent iron stores. 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 -AML in remission as of 02/11/2023, per last [facility] oncology note. Last [facility] [place]: "Has achieved an MRD negative remission state following 1 cycle of Aza/Nicko. He has a hypercellular marrow with return of his baseline dysplasia, but this remains MRD negative for AML despite treatment hold." * Holding home venetoclax * Continue antimicrobial prophylaxis: Acyclovir, levofloxacin, posaconazole Coronary artery disease/history of CABG/hypercholesterolemia -CABG x3 in November 2006. Seen twice yearly by Dr. Hammond. -Excellent BP control, LDL cholesterol controlled. CAD considered quiescent on his current medical regimen. * Continue home metoprolol succinate 12.5 mg daily * Continue home rosuvastatin 10 mg daily Zinc deficiency * Continue home zinc sulfate 220 mg p.o. daily. Code: Full code Dispo: Med-Surg FEN/GI: Heart healthy DVT Prophylaxis: PT/OT: No Consults: Hematology-oncology Case Management: No (2) Pancytopenia due to antineoplastic chemotherapy: (3) Hx of CABG: (4) CAD (coronary artery disease): (5) Leukopenia due to antineoplastic chemotherapy: (6) Myelodysplastic syndrome: (7) Symptomatic anemia: (8) Hypercholesterolemia: History of Present Illness Primary Care Provider: Raoul Obrien MD Barron is a very pleasant 82-year-old man with history of recently diagnosed myelodysplastic syndrome currently on chemotherapy who presented from the [facility] (2 weeks on, 2 weeks off) after his hemoglobin was revealed to be 6.1. He usually gets thrice weekly surveillance labs but was unable to this week until Thursday as he had been traveling. His only complaint on admission is severe shortness of breath and swollen legs, which is baseline for him. He does admit to a small headache but attributes that to being hungry. He denies fever, or shaking chills, chest pain, abdominal pain, nausea, or diarrhea/constipation. In the emergency room, he was found to be hemodynamically stable. Repeat CBC showed hemoglobin of 6.0, WBC-0.49, and a platelet count of 0 (usual range 12 K 40 K). Total bilirubin was mildly elevated at 1.2 on CMP. Otherwise, the rest of his metabolic panel was within normal limits or stable. He received platelet pheresis in the ED 1 unit of packed RBCs was ordered but had to be transfused at the time of admission. Allergies Allergy/AdvReac Type Severity Reaction Status Date / Time No Known Allergies Allergy Verified 04/03/23 23:12 Home Medications Medication Instructions Recorded Confirmed Type Epsom Salt Soak 1 ea topical QPM PRN .flare up 04/15/22 04/03/23 History Palmers Cream 1 applic topical QPM rash 04/15/22 04/03/23 History vitamin B complex 1 cap PO DAILY 05/27/22 04/03/23 History metoprolol succinate 25 mg 12.5 mg PO DAILY #90 tabs 10/22/22 04/03/23 Rx tablet,extended release 24 hr pantoprazole 20 mg tablet,delayed 20 mg PO BID #180 tabs 11/01/22 04/03/23 Rx release acetaminophen 500 mg tablet 1,000 mg PO Q6 PRN Pain, Moderate 12/16/22 04/03/23 History acyclovir 200 mg capsule 400 mg PO BID 12/16/22 04/03/23 History ascorbic acid (vitamin C) 500 mg 500 mg PO HS 12/16/22 04/03/23 History tablet (Vitamin C) plfvymd-vntdsqkztmzyn-nypmkddv 250 1 tab PO Q6H PRN Headache 12/16/22 04/03/23 History mg-250 mg-65 mg tablet (Excedrin Migraine) levofloxacin 250 mg tablet 250 mg PO HS 12/16/22 04/03/23 History melatonin 10 mg tablet 10 mg PO HS 12/16/22 04/03/23 History dyzwheco-ns-ycxfy 300 mcg-K 60 1 tab PO DAILY 12/16/22 04/03/23 History mcg-lycop 600 mcg-lutein 300 mcg tablet (Centrum Silver Men) ondansetron 8 mg disintegrating 8 mg PO Q8H PRN Nausea 12/16/22 04/03/23 History tablet polyethylene glycol 3350 17 17 g PO DAILY 12/16/22 04/03/23 History gram/dose oral powder (Miralax) posaconazole 100 mg tablet,delayed 300 mg PO DAILY 12/16/22 04/03/23 History release rosuvastatin 10 mg tablet 10 mg PO DAILY #90 tabs 12/16/22 04/03/23 Rx triamcinolone acetonide 0.025 % 1 applic topical BID PRN Itching 12/16/22 04/03/23 History topical cream venetoclax 10 mg tablet 20 mg PO DAILY 12/16/22 04/03/23 History venetoclax 50 mg tablet 50 mg PO DAILY 12/16/22 04/03/23 History vitamin E 50 unit capsule 1 unit PO DAILY 12/16/22 04/03/23 History zinc sulfate 50 mg zinc (220 mg) 50 mg PO DAILY 12/16/22 04/03/23 History capsule cholecalciferol (vitamin D3) 25 0 mcg PO DAILY 04/03/23 04/03/23 History mcg (1,000 unit) tablet (Vitamin D3) Past Med/Surg History Medical History (Updated 04/04/23 @ 06:33 by Luzma Mistry MD) Abnormal CT scan, chest CAD (coronary artery disease) Hypercholesterolemia Hypertension MDS (myelodysplastic syndrome) Myelodysplastic syndrome Status post fall Fell 12/20/22, reports hitting R side of head, scab noted on head and bruising to majority of R upper extremity. Symptomatic anemia Thrombocytopenia Zinc deficiency Surgical History H/O cataract extraction bilateral History of bone marrow biopsy Hx of CABG 3-vessel, [facility] Family History Mother , in her 90s Parkinsons disease Social History Smoking Status: Never smoker Second Hand Exposure: No; Do You Dip or Chew Tobacco: No; Hx Alcohol Use: No Hx Substance Use: No Preferred Language: Swedish Communication Ability: Effective Wood Barrel Reconditioner Required: No Beliefs That Will Affect Care: None marital status: Current Living Situation: Alone current occupational status: retired 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 HEENT: Normocephalic, atraumatic. EOM intact. Good conjugate gaze. Nares patent. Moist mucosal membranes. Neck: Supple. No lymphadenopathy. Normal ROM. CV: Regular rate and rhythm. Respiratory: Normal respiratory effort. Abdomen: Soft, nondistended abdomen. No bruits heard on auscultation. No tenderness to deep palpation. No guarding or rebound. Extremities: Capillary refill <2 sec. 2+ dp equal bilaterally. 2+ bilateral pedal edema to the mid-lower leg. Multiple ecchymotic patches, diffuse petechiae of bilateral UE + LE noted on exam. Right medial malleolus wound with surrounding violaceous erythema. Neuro: Alert and oriented x3. Skin: Clean, dry, and intact. Results & Data Results & Data Vital Signs (Past 12 Hours) Vital Signs Temp Pulse Pulse Resp BP BP Pulse Ox 04/03/23 23:00 37.2 C 78 20 119/69 98 04/03/23 22:43 37 C 72 18 113/76 100 04/03/23 22:21 82 20 122/69 99 04/03/23 20:25 94 H 04/03/23 20:21 100 04/03/23 20:21 74 100 04/03/23 19:29 37.1 C 83 18 104/66 95 O2 Del Method O2 Flow Rate 04/03/23 23:00 0 04/03/23 22:43 04/03/23 22:21 Room Air 04/03/23 20:25 04/03/23 20:21 Room Air 04/03/23 20:21 Room Air 04/03/23 19:29 Room Air Supervising Physician Co-Signing Physician Notes attending addendum: I have physically seen this patient, have supervised the medical residents activities, and agree with the H&P unless as otherwise noted. Assessment and Plan: AML/MDS- pancytopenia: Neutropenia, anemia, thrombocytopenia Transfusions ordered for PRBCs and platelets as noted, and follow repeat laboratories Neutropenia precautions Continue prophylactic medications: Acyclovir, posaconazole, levofloxacin Consults to oncology CAD/CABG/hypertension- Continue metoprolol succinate with hold parameters hyperlipidemia- Continue rosuvastatin GERD- Continue pantoprazole Remaining orders and notations as noted Resident Activity Tracking Resident Involvement: Resident Care Provided Care Provided: Adult Hospital Medicine
--- NOTE | 2023-04-04 00:26 | Emergency Department Note ---
History of Present Illness General Chief complaint: Abnormal Labs/Diagnostic Testing Stated complaint: REF BY DOC,ABNORMAL LABS Time Seen by Provider: 04/03/23 21:35 History of Present Illness This 82-year-old cancer patient who received chemotherapy for 2 weeks and 2 weeks off presents the ER for referral for abnormal CBC. Patient's received multiple blood transfusions in the past. Last chemotherapy was a week ago. He follows here and at [facility]. Patient denies chest pain, abdominal pain, fever, chills, cough, congestion. He does feel short of breath. He does get short of breath with his severe anemia's. His legs are chronically swollen. Home Medications Medication Instructions Recorded Confirmed Type Epsom Salt Soak 1 ea topical QPM PRN .flare up 04/15/22 04/03/23 History Palmers Cream 1 applic topical QPM rash 04/15/22 04/03/23 History vitamin B complex 1 cap PO DAILY 05/27/22 04/03/23 History metoprolol succinate 25 mg 12.5 mg PO DAILY #90 tabs 10/22/22 04/03/23 Rx tablet,extended release 24 hr pantoprazole 20 mg tablet,delayed 20 mg PO BID #180 tabs 11/01/22 04/03/23 Rx release acetaminophen 500 mg tablet 1,000 mg PO Q6 PRN Pain, Moderate 12/16/22 04/03/23 History acyclovir 200 mg capsule 400 mg PO BID 12/16/22 04/03/23 History ascorbic acid (vitamin C) 500 mg 500 mg PO HS 12/16/22 04/03/23 History tablet (Vitamin C) yoidnpi-aywtedsjlsmob-roglfmny 250 1 tab PO Q6H PRN Headache 12/16/22 04/03/23 History mg-250 mg-65 mg tablet (Excedrin Migraine) levofloxacin 250 mg tablet 250 mg PO HS 12/16/22 04/03/23 History melatonin 10 mg tablet 10 mg PO HS 12/16/22 04/03/23 History wrdmxjlb-nu-bnscg 300 mcg-K 60 1 tab PO DAILY 12/16/22 04/03/23 History mcg-lycop 600 mcg-lutein 300 mcg tablet (Centrum Silver Men) ondansetron 8 mg disintegrating 8 mg PO Q8H PRN Nausea 12/16/22 04/03/23 History tablet polyethylene glycol 3350 17 17 g PO DAILY 12/16/22 04/03/23 History gram/dose oral powder (Miralax) posaconazole 100 mg tablet,delayed 300 mg PO DAILY 12/16/22 04/03/23 History release rosuvastatin 10 mg tablet 10 mg PO DAILY #90 tabs 12/16/22 04/03/23 Rx triamcinolone acetonide 0.025 % 1 applic topical BID PRN Itching 12/16/22 04/03/23 History topical cream venetoclax 10 mg tablet 20 mg PO DAILY 12/16/22 04/03/23 History venetoclax 50 mg tablet 50 mg PO DAILY 12/16/22 04/03/23 History vitamin E 50 unit capsule 1 unit PO DAILY 12/16/22 04/03/23 History zinc sulfate 50 mg zinc (220 mg) 50 mg PO DAILY 12/16/22 04/03/23 History capsule cholecalciferol (vitamin D3) 25 0 mcg PO DAILY 04/03/23 04/03/23 History mcg (1,000 unit) tablet (Vitamin D3) Allergies Allergy/AdvReac Type Severity Reaction Status Date / Time No Known Allergies Allergy Verified 04/03/23 23:12 Past Med/Surg History Medical History Abnormal CT scan, chest CAD (coronary artery disease) Hypercholesterolemia Hypertension MDS (myelodysplastic syndrome) Myelodysplastic syndrome Status post fall Fell 12/20/22, reports hitting R side of head, scab noted on head and bruising to majority of R upper extremity. 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 [employer] How many Children do You have: 4 How many Children do You have Comment: 1 son is Feels Safe at Home: Yes Assistive Devices: None Review of Systems A total of 10 systems reviewed and were otherwise negative Physical Exam Vital Signs Vital Signs - 24 hr 04/03/23 19:29 04/03/23 20:21 04/03/23 20:21 Temperature 37.1 C Temperature Source Oral Pulse Rate 83 Pulse Rate [Finger] 74 Pulse Rhythm Pulse Strength Respiratory Rate 18 Respiratory Effort / Characteristics Non-Labored Spontaneous Respiratory Depth Normal Blood Pressure 104/66 Blood Pressure [Left Arm] Blood Pressure Mean 78 Blood Pressure Mean [Left Arm] Blood Pressure Position Sitting Pulse Oximetry 95 100 100 Oxygen Delivery Method Room Air Room Air Room Air Oxygen Flow Rate Sepsis Recent Fever Within 48 Hours No Sepsis New/Unexplained Change in Mental Status No Sepsis Action Taken by Nursing No Action Required 04/03/23 20:25 04/03/23 22:21 04/03/23 22:43 Temperature 37 C Temperature Source Oral Pulse Rate 94 H 72 Pulse Rate [Finger] 82 Pulse Rhythm Pulse Strength Respiratory Rate 20 18 Respiratory Effort / Characteristics Non-Labored Spontaneous Respiratory Depth Normal Blood Pressure 113/76 Blood Pressure [Left Arm] 122/69 Blood Pressure Mean 88 Blood Pressure Mean [Left Arm] 86 Blood Pressure Position Pulse Oximetry 99 100 Oxygen Delivery Method Room Air Oxygen Flow Rate Sepsis Recent Fever Within 48 Hours Sepsis New/Unexplained Change in Mental Status Sepsis Action Taken by Nursing 04/03/23 23:00 04/03/23 23:15 04/03/23 23:45 Temperature 37.2 C 37.1 C 37.1 C Temperature Source Oral Oral Oral Pulse Rate 78 73 69 Pulse Rate [Finger] Pulse Rhythm Regular Regular Pulse Strength Normal Normal Respiratory Rate 20 16 18 Respiratory Effort / Characteristics Respiratory Depth Blood Pressure 119/69 133/72 134/73 Blood Pressure [Left Arm] Blood Pressure Mean 85 92 93 Blood Pressure Mean [Left Arm] Blood Pressure Position Semi-fowlers Semi-fowlers Pulse Oximetry 98 98 99 Oxygen Delivery Method Oxygen Flow Rate 0 Sepsis Recent Fever Within 48 Hours Sepsis New/Unexplained Change in Mental Status Sepsis Action Taken by Nursing 04/04/23 00:14 Temperature 37.1 C Temperature Source Oral Pulse Rate 68 Pulse Rate [Finger] Pulse Rhythm Regular Pulse Strength Normal Respiratory Rate 18 Respiratory Effort / Characteristics Respiratory Depth Blood Pressure 139/76 Blood Pressure [Left Arm] Blood Pressure Mean 97 Blood Pressure Mean [Left Arm] Blood Pressure Position Semi-fowlers Pulse Oximetry 99 Oxygen Delivery Method Oxygen Flow Rate Sepsis Recent Fever Within 48 Hours Sepsis New/Unexplained Change in Mental Status Sepsis Action Taken by Nursing VITALS: Vitals are noted on the nurse's note and reviewed by myself. Vital signs stable. GENERAL: Pleasant gentleman, in no acute distress, nondiaphoretic, well- developed well-nourished. SKIN: The skin was without rashes, erythema, or bruising. There is no tenting of the skin. Capillary reflex less than 2 seconds. HEAD: Normocephalic atraumatic. EARS: External auditory canals clear, EYES: Pupils equal round and reactive to light and accommodation. Conjunctivae without injection, sclerae without icterus. Extraocular movements intact. NOSE: Patent, turbinates without inflammation or discharge. MOUTH: Mucous membranes moist. Pharynx without erythema or exudate. Uvula midline. Airway patent. Tongue does not deviate. NECK: Supple without nuchal rigidity. No lymphadenopathy. No thyromegaly. Cervical spine is nontender. No JVD. HEART: Regular rate and rhythm LUNGS: Clear to auscultation bilaterally without wheezes, rales or rhonchi. No retractions or accessory muscle use. ABDOMEN: Positive bowel sounds x 4. Normal tympanic percussion. Soft, nontender, without masses or organomegaly. De León sign negative. No guarding or rebound tenderness. No CVA tenderness MUSCULOSKELETAL: No muscle atrophy, erythema, noted. +1 pitting edema up to mid tib-fib bilaterally unchanged per patient. NEURO: Patient was alert and oriented to person place and time. Normal sensation to light and sharp touch. No focal neurological deficits. Medical Decision Making Medical Records Attestation: I reviewed the patient's medical records. Home Medications Current Medication List: was personally reviewed by me Laboratory Data Attestation: I reviewed the patient's lab results. 04/03/23 20:14 04/03/23 20:14 Lab Results 04/03/23 04/03/23 04/03/23 Range/Units 20:14 20:14 20:14 WBC 0.49 L* (4.8-10.8) K/ul RBC 1.82 L (4.70-6.10) M/uL Hgb 6.0 L* (14.0-18.0) g/dl Hct 17.6 L* (42.0-52.0) % MCV 96.7 (80.0-100.0) fL MCH 33.0 (25.0-34.0) pg MCHC 34.1 (32.0-36.0) g/dL RDW Std Deviation 61.6 H (36.4-46.3) fL RDW Coeff of Dany 18.1 H (11.5-14.5) % Plt Count 0 L* D (130-400) K/uL Immature Gran % (Auto) Cancelled Neut % (Auto) Cancelled Lymph % (Auto) Cancelled Jerauld % (Auto) Cancelled Eos % (Auto) Cancelled Baso % (Auto) Cancelled Neut # (Auto) Cancelled Lymph # (Auto) Cancelled [place] # (Auto) Cancelled Eos # (Auto) Cancelled Baso # (Auto) Cancelled Immature Gran # (Auto) Cancelled Neutrophils % (Manual) Cancelled Band Neutrophils % Cancelled Lymphocytes % (Manual) Cancelled Prolymphocyte % Cancelled Reactive Lymphs % (Man) Cancelled Monocytes % (Manual) Cancelled Eosinophils % (Manual) Cancelled Basophils % (Manual) Cancelled Metamyelocytes % (Man) Cancelled Myelocytes % (Man) Cancelled Promyelocytes % (Man) Cancelled Blast Cells % (Manual) Cancelled Plasma Cell % (Manual) Cancelled Other Cells % Cancelled Nucleated RBC % Cancelled Neutrophils # (Manual) Cancelled Band Neutrophils # Cancelled Total Absolute Neuts Cancelled Lymphocytes # (Manual) Cancelled Prolymphocyte # Cancelled Reactive Lymphs # Cancelled Total Abs Lymphocytes Cancelled Monocytes # (Manual) Cancelled Eosinophils # (Manual) Cancelled Basophils # (Manual) Cancelled Metamyelocytes # (Man) Cancelled Myelocytes # (Manual) Cancelled Promyelocytes # (Man) Cancelled Blast Cells # (Man) Cancelled Plasma Cell # (Manual) Cancelled Other Cells # Cancelled Nucleated RBCs # (Man) Cancelled Hypersegmented Neuts Cancelled Hyposegmented Neuts Cancelled Hypogranular Neuts Cancelled Large Granular Lymphs Cancelled # Lrg Granular Lymphs Cancelled Hairy Cells Cancelled Smudge Cells Cancelled Toxic Granulation Cancelled Toxic Vacuolation Cancelled Dohle Bodies Cancelled Jody Rods Cancelled Hypogranular Platelets Cancelled Giant Platelets Cancelled Platelet Satelliting Cancelled RBC Morphology Cancelled Polychromasia Cancelled Hypochromasia Cancelled Poikilocytosis Cancelled Basophilic Stippling Cancelled Anisocytosis Cancelled Microcytosis Cancelled Macrocytosis Cancelled Spherocytes Cancelled Pappenheimer Bodies Cancelled Sickle Cells Cancelled Target Cells Cancelled Tear Drop Cells Cancelled Ovalocytes Cancelled Stomatocytes Cancelled [place] Bodies Cancelled Echinocytes Cancelled Acanthocytes (Spur) Cancelled Rouleaux Cancelled RBC Agglutinates Cancelled Schistocytes Cancelled Sezary Cell Cancelled PT 11.5 (9.0-12.0) Seconds INR 1.1 (0.9-1.1) APTT 30.1 (21.0-31.0) Seconds PTT Ratio 1.1 Sodium 133 L (136-145) mmol/L Potassium 4.3 (3.5-5.1) mmol/L Chloride 103 (98-107) mmol/L Carbon Dioxide 22 (21-32) mmol/L Anion Gap 8 (3-11) BUN 44 H (6-23) mg/dl Creatinine 1.23 (0.6-1.4) mg/dl Est Cr Clr Drug Dosing 41.1 ml/min Est GFR ( Amer) 63.0 ml/min Est GFR (Non-Af Amer) 54.3 ml/min BUN/Creatinine Ratio 35.8 H (10-20) Glucose 113 H (70-99(Fasting)) mg/dl Calcium 8.2 L (8.6-10.3) mg/dl Magnesium 1.8 (1.7-2.4) mg/dl Total Bilirubin 1.2 H (0.2-1.0) mg/dl AST 21 (13-39) U/L ALT 25 (7-52) U/L Alkaline Phosphatase 81 (34-104) U/L Troponin I High Sens 18.8 (0-20) pg/ml B-Natriuretic Peptide (0-100) pg/ml Total Protein 6.1 (6.0-8.3) gm/dl Albumin 3.4 (3.4-5.0) gm/dl Globulin 2.7 (2.5-4.0) gm/dl Albumin/Globulin Ratio 1.3 (0.9-2) SARS-CoV-2, RNA, NAAT (NEGATIVE) Blood Parasites ID Cancelled Blood Type Antibody Screen Crossmatch 04/03/23 04/03/23 04/03/23 Range/Units 20:14 22:52 Unknown WBC (4.8-10.8) K/ul RBC (4.70-6.10) M/uL Hgb (14.0-18.0) g/dl Hct (42.0-52.0) % MCV (80.0-100.0) fL MCH (25.0-34.0) pg MCHC (32.0-36.0) g/dL RDW Std Deviation (36.4-46.3) fL RDW Coeff of Dany (11.5-14.5) % Plt Count (130-400) K/uL Immature Gran % (Auto) Neut % (Auto) Lymph % (Auto) Jerauld % (Auto) Eos % (Auto) Baso % (Auto) Neut # (Auto) Lymph # (Auto) J[place]uld # (Auto) Eos # (Auto) Baso # (Auto) Immature Gran # (Auto) Neutrophils % (Manual) Band Neutrophils % Lymphocytes % (Manual) Prolymphocyte % Reactive Lymphs % (Man) Monocytes % (Manual) Eosinophils % (Manual) Basophils % (Manual) Metamyelocytes % (Man) Myelocytes % (Man) Promyelocytes % (Man) Blast Cells % (Manual) Plasma Cell % (Manual) Other Cells % Nucleated RBC % Neutrophils # (Manual) Band Neutrophils # Total Absolute Neuts Lymphocytes # (Manual) Prolymphocyte # Reactive Lymphs # Total Abs Lymphocytes Monocytes # (Manual) Eosinophils # (Manual) Basophils # (Manual) Metamyelocytes # (Man) Myelocytes # (Manual) Promyelocytes # (Man) Blast Cells # (Man) Plasma Cell # (Manual) Other Cells # Nucleated RBCs # (Man) Hypersegmented Neuts Hyposegmented Neuts Hypogranular Neuts Large Granular Lymphs # Lrg Granular Lymphs Hairy Cells Smudge Cells Toxic Granulation Toxic Vacuolation Dohle Bodies Jody Rods Hypogranular Platelets Giant Platelets Platelet Satelliting RBC Morphology Polychromasia Hypochromasia Poikilocytosis Basophilic Stippling Anisocytosis Microcytosis Macrocytosis Spherocytes Pappenheimer Bodies Sickle Cells Target Cells Tear Drop Cells Ovalocytes Stomatocytes [place] Bodies Echinocytes Acanthocytes (Spur) Rouleaux RBC Agglutinates Schistocytes Sezary Cell PT (9.0-12.0) Seconds INR (0.9-1.1) APTT (21.0-31.0) Seconds PTT Ratio Sodium (136-145) mmol/L Potassium (3.5-5.1) mmol/L Chloride (98-107) mmol/L Carbon Dioxide (21-32) mmol/L Anion Gap (3-11) BUN (6-23) mg/dl Creatinine (0.6-1.4) mg/dl Est Cr Clr Drug Dosing ml/min Est GFR ( Amer) ml/min Est GFR (Non-Af Amer) ml/min BUN/Creatinine Ratio (10-20) Glucose (70-99(Fasting)) mg/dl Calcium (8.6-10.3) mg/dl Magnesium (1.7-2.4) mg/dl Total Bilirubin (0.2-1.0) mg/dl AST (13-39) U/L ALT (7-52) U/L Alkaline Phosphatase (34-104) U/L Troponin I High Sens (0-20) pg/ml B-Natriuretic Peptide 114 H (0-100) pg/ml Total Protein (6.0-8.3) gm/dl Albumin (3.4-5.0) gm/dl Globulin (2.5-4.0) gm/dl Albumin/Globulin Ratio (0.9-2) SARS-CoV-2, RNA, NAAT NEGATIVE (NEGATIVE) Blood Parasites ID Blood Type A Negative Antibody Screen NEGATIVE Crossmatch See Detail Imaging Data Attestation: I personally reviewed and interpreted this imaging study as follows: Radiologist's Impression: Chest X-Ray 04/03/23 22:04 SINGLE VIEW CHEST CLINICAL HISTORY: Dyspnea FINDINGS: An AP, portable, upright chest radiograph is compared to study dated 11/28/2022. Correlation is made with chest CT dated 01/08/2022. The patient is status post midline sternotomy. A right subclavian central venous catheter is new from previous. The heart is enlarged noting atherosclerotic calcification of the thoracic aorta. The pulmonary vasculature is noncongested. Bibasilar opacities are similar to previous. No large pleural effusion or pneumothorax is seen. The skeletal structures are osteopenic. There are chronic/healed left- sided rib fractures. IMPRESSION: 1. Cardiomegaly without radiographic evidence of congestive failure. 2. Bibasilar opacities are unchanged this could represent scarring/atelectasis/changes of chronic lung disease. Correlate clinically for evidence of a superimposed pneumonitis. Follow-up radiographically as needed. ACT 112: Negative or not required by law. Electronically signed by: Vikas Al M.D. 04/03/2023 10:54 PM [facility] Narrative Prior records/ancillary studies reviewed and summarized above. Nursing notes reviewed. Additional history obtained from nursing. The patient's history was concerning for fatigue dyspnea and low blood counts. Differential diagnosis: Etiologies such as metabolic, infection, hypo/hyperglycemia, electrolyte abnormalities, cardiac sources, intracerebral event, toxicologic, neurologic, as well as others were entertained. Physical examination: As above. ER treatment provided: IV Lock An order was placed for continuous cardiac monitoring. The monitor shows a rate of 60-100 with a sinus rhythm per my interpretation. Patient was consented and typed and crossmatched 2 units of blood and 1 of platelets On reassessment the patient felt better. Diagnostics interpretation by me: ECG: Ordered for dyspnea EKG: Normal sinus, left axis, no acute ST-T wave changes, rate 75. Impression normal sinus rhythm left axis interval interpreted by myself I think arrhythmia is unlikely. EKG shows normal sinus rhythm with no interval abnormalities such as QT prolongation or WPW. There are no findings to suggest Brugada syndrome. Cardiac monitoring in the emergency department reveals no tachycardic or bradycardic dysrhythmia. Hypertrophic cardiomyopathy was considered but there are no clear historical elements pointing toward this. EKG is not suggestive. The QRS voltage is not extremely large The labs Independently Interpreted by myself revealed severe pancytopenia Negative troponin, mild hyperglycemia without DKA Imaging studies: Chest x-ray with cardiomegaly without overt heart failure per my independent rotation Consultation: A consultation was placed with the hospitalist. The case was discussed and diagnostics were reviewed. The patient was evaluated in the ER for further treatment. I spoke with the on-call oncologist and recommends irradiated blood and platelets. Exam and history seem consistent with pancytopenia most likely related to chemotherapy and cancer. Patient was typed and crossmatched for 2 units of irradiated blood and he was consented for platelets. Hospitalist was consulted and the case discussed. Patient will be admitted to the medical service. Labs and diagnostics were independently interpreted by myself. Patient was reassessed multiple times. He had multiple blood transfusions in the past without difficulties. Patient is agreeable treatment plan of admission. By the evaluation outlined above emergent etiologies such as infection, electrolyte abnormalities, cardiac sources, intracerebral event, toxologic, neurologic, abnormalities blood glucose, metabolic, as well as others were deemed relatively unlikely. The pt informed about the findings as listed above. All questions were answered and pleased with the treatment. The chart was completed utilizing [employer] voice recognition software. Grammatical errors, random word insertions, pronoun errors, and incomplete sentences are an occassional consequence of this system due to software limitations, ambient noise, and hardware issues. Any formal questions or concerns about the content, text, or information contained within the body of this dictation should be directly addressed to the physician urgent care physician assistant for clarification. Attending Attestation: Gaby Harrison MD independently saw and evaluated this patient and agree with history and physical is otherwise documented by the physician urgent care physician assistant. See their note for full details. Patient resting in bed. Unfortunate oncological process now with worsened anemia and thrombocytopenia. Was discussion with oncology and patient consented for blood transfusion. Has had some in the past. Patient was agreeable to transfusion. Platelets ordered after discussion with oncology by the physician urgent care physician assistant. 1 unit of blood ordered and the second unit will need to be procured from outside the hospital given his crossmatch and this is pending. Patient does not appear unstable at this time. Will bring in for the transfusions and further care. The hospitalist was contacted. Critical Care I have personally spent 32 minutes of critical care time in the direct management of this patient. This includes bedside care, interpretation of diag nostic studies, and testing, discussion with consultants, patient, and other required patient management activities. These 32 minutes is in excess of all separately billable procedures. Impression & Plan Myelodysplastic syndrome, Pancytopenia, Symptomatic anemia Discharge Plan Visit Data Chief Complaint: Abnormal Labs/Diagnostic Testing Stated Complaint: REF BY DOC,ABNORMAL LABS ED Provider: Igor Harrison ED Midlevel Provider: Dawna Monsivais Discharge Problem: Myelodysplastic syndrome, Pancytopenia, Symptomatic anemia Patient Disposition: Admitted As Inpatient Condition: Fair Discharge Instructions Interventions: ED Discharge Assessment Last Done: 04/03/23 23:58 Forms Stand Alone Forms: [facility] Prescriptions Prescriptions: No Action pantoprazole 20 mg tablet,delayed release (DR/EC) 20 mg PO BID Qty: 180 3RF rosuvastatin 10 mg tablet 10 mg PO DAILY Qty: 90 3RF metoprolol succinate 25 mg tablet extended release 24 hr 12.5 mg PO DAILY Qty: 90 3RF Epsom Salt Soak 1 ea topical QPM PRN (Reason: .flare up) Palmers Cream 1 applic topical QPM levofloxacin 250 mg Tablet 250 mg PO HS acetaminophen [Tylenol Ex Str Arthritis Pain] 500 mg Tablet 1,000 mg PO Q6 PRN (Reason: Pain, Moderate) ondansetron 8 mg Tablet,Disintegrating 8 mg PO Q8H PRN (Reason: Nausea) triamcinolone acetonide 0.025 % cream 1 applic TOPICAL BID PRN (Reason: Itching) ascorbic acid (vitamin C) [Vitamin C] 500 mg Tablet 500 mg PO HS acyclovir 200 mg Capsule 400 mg PO BID polyethylene glycol 3350 [Miralax] 17 gram/dose Powder 17 g PO DAILY Rx Instructions: takes at dinner time with milk Excedrin Migraine 250-250-65 mg Tablet 1 tab PO Q6H PRN (Reason: Headache) vitamin E 50 unit Capsule 1 unit PO DAILY Rx Instructions: unsure of dosage zinc sulfate 50 mg zinc (220 mg) Capsule 50 mg PO DAILY Rx Instructions: unsure of dose Centrum Silver Men 300-600-300 mcg Tablet 1 tab PO DAILY melatonin 10 mg Tablet 10 mg PO HS posaconazole 100 mg Tablet,Delayed Release (Dr/Ec) 300 mg PO DAILY Rx Instructions: take at lunch always take with food Do not take at the same time as venetoclax venetoclax 10 mg Tablet 20 mg PO DAILY Rx Instructions: at breakfast, 7 days on & 7 days on. is off @ present. venetoclax 50 mg Tablet 50 mg PO DAILY Rx Instructions: 7 days on & 7 days off. Is off @present, vitamin B complex Capsule 1 cap PO DAILY cholecalciferol (vitamin D3) [Vitamin D3] 25 mcg (1,000 unit) Tablet 0 mcg PO DAILY Referrals Referrals: Raoul Obrien MD [Primary Care Provider] -
[2023-04-04] MEDS ORDERED: ONDANSETRON 8MG OD TAB PO PRN (00:53)
[2023-04-04] MEDS ORDERED: EPSOM SALT TOP PRN (00:53)
[2023-04-04] MEDS ORDERED: TRIAMCINOLONE ACET 0.025% CR 15 GM TUBE TOP PRN (00:53)
[2023-04-04] MEDS ORDERED: NON-FORMULARY MEDICATION (Aspirin-Acetaminophen-Caffeine [Excedrin Migraine] 250-250-65 mg PO PRN (00:53)
[2023-04-04] MEDS ORDERED: ACETAMINOPHEN 500 MG TAB PO PRN (00:53)
--- NOTE | 2023-04-04 06:21 | Oncology Consultation ---
Date of Consultation April 04, 2023 Assessment & Plan (1) AML (acute myeloblastic leukemia): (2) Pancytopenia due to antineoplastic chemotherapy: Plan Gentleman with AML progressed from MDS currently on Azacitidine 75 mg/m2 days 1 - 5 and Venetoclax 70 mg days 1-14 every 28 days cycle. He last received azacitidine from 03/16/2023 to 03/20/2023 and is due for next cycle of tx on 04/13/2023. Has required transfusions regularly outpatient. Presented with severe pancytopenia likely due to disease and treatment -Recommend transfusion with Platelets /PRBC with goal of 10,000 and 7.5g respectively. Can be discharged home after this -should have completed this venetoclax for this cycle so should not be taking it at this time. -Continue posaconazole, acyclovir,levofloxacin. Obtain infectiouus workup if he develops fever or has any symptoms concerning for infection given severe neutrop enia Thanks for thus consult. Hematology will follow up with him on discharge and resume outpatient labs/transfusion. History of Present Illness Reason for Consultation: Severe pancytopenia Attending Physician: Dre Culp MD History of Present Illness 82 year old gentleman with h/o MDS with excess blasts progressed to AML in for which he is on Azacitidine 75 mg/m2 days 1 - 5 and Venetoclax 70 mg days 1-14 every 28 days cycle. Patient has required outpatient transfusions fairly regularly and labs obtained yesterday morning at [facility] revealed wbc of 0.4, hemoglobin of 6.1 and platelet count of 1,000. He was scheduled to receive outpatient transfusion as per standing orders but he declined this opting to present to the ED later in the day because he had another appointment. At that time he denied any abnormal bleeding/bruising. Subsequently presented to ED at [facility] and Labs on ED arrival revealed platelet count of 0 and hemoglobin of 6. Today's consult was completed virtually and so, history was obtained by chart review. He last received azacitidine between 03/16/23 and 03/20/2023` Allergies Allergy/AdvReac Type Severity Reaction Status Date / Time No Known Allergies Allergy Verified 04/03/23 23:12 Home Medications Medication Instructions Recorded Confirmed Type Epsom Salt Soak 1 ea topical QPM PRN .flare up 04/15/22 04/03/23 History Palmers Cream 1 applic topical QPM rash 04/15/22 04/03/23 History vitamin B complex 1 cap PO DAILY 05/27/22 04/03/23 History metoprolol succinate 25 mg 12.5 mg PO DAILY #90 tabs 10/22/22 04/03/23 Rx tablet,extended release 24 hr pantoprazole 20 mg tablet,delayed 20 mg PO BID #180 tabs 11/01/22 04/03/23 Rx release acetaminophen 500 mg tablet 1,000 mg PO Q6 PRN Pain, Moderate 12/16/22 04/03/23 History acyclovir 200 mg capsule 400 mg PO BID 12/16/22 04/03/23 History ascorbic acid (vitamin C) 500 mg 500 mg PO HS 12/16/22 04/03/23 History tablet (Vitamin C) qcyxozy-jvdshjlluvgfs-tywkwezf 250 1 tab PO Q6H PRN Headache 12/16/22 04/03/23 History mg-250 mg-65 mg tablet (Excedrin Migraine) levofloxacin 250 mg tablet 250 mg PO HS 12/16/22 04/03/23 History melatonin 10 mg tablet 10 mg PO HS 12/16/22 04/03/23 History mhaivjqn-fh-pakfl 300 mcg-K 60 1 tab PO DAILY 12/16/22 04/03/23 History mcg-lycop 600 mcg-lutein 300 mcg tablet (Centrum Silver Men) ondansetron 8 mg disintegrating 8 mg PO Q8H PRN Nausea 12/16/22 04/03/23 History tablet polyethylene glycol 3350 17 17 g PO DAILY 12/16/22 04/03/23 History gram/dose oral powder (Miralax) posaconazole 100 mg tablet,delayed 300 mg PO DAILY 12/16/22 04/03/23 History release rosuvastatin 10 mg tablet 10 mg PO DAILY #90 tabs 12/16/22 04/03/23 Rx triamcinolone acetonide 0.025 % 1 applic topical BID PRN Itching 12/16/22 04/03/23 History topical cream venetoclax 10 mg tablet 20 mg PO DAILY 12/16/22 04/03/23 History venetoclax 50 mg tablet 50 mg PO DAILY 12/16/22 04/03/23 History vitamin E 50 unit capsule 1 unit PO DAILY 12/16/22 04/03/23 History zinc sulfate 50 mg zinc (220 mg) 50 mg PO DAILY 12/16/22 04/03/23 History capsule cholecalciferol (vitamin D3) 25 0 mcg PO DAILY 04/03/23 04/03/23 History mcg (1,000 unit) tablet (Vitamin D3) Patient History Medical History (Updated 04/04/23 @ 06:33 by Luzma Mistry MD) Abnormal CT scan, chest CAD (coronary artery disease) Hypercholesterolemia Hypertension MDS (myelodysplastic syndrome) Myelodysplastic syndrome Status post fall Fell 12/20/22, reports hitting R side of head, scab noted on head and bruising to majority of R upper extremity. 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7 C 79 18 110/69 97 04/04/23 01:43 37.0 C 71 18 107/69 98 04/04/23 00:14 37.1 C 68 18 139/76 99 04/03/23 23:45 37.1 C 69 18 134/73 99 04/03/23 23:15 37.1 C 73 16 133/72 98 04/03/23 23:00 37.2 C 78 20 119/69 98 04/03/23 22:43 37 C 72 18 113/76 100 04/03/23 22:21 82 20 122/69 99 04/03/23 20:25 94 H 04/03/23 20:21 100 04/03/23 20:21 74 100 04/03/23 19:29 37.1 C 83 18 104/66 95 O2 Del Method O2 Flow Rate 04/04/23 05:05 04/04/23 04:45 04/04/23 03:45 04/04/23 02:45 04/04/23 02:15 04/04/23 02:00 04/04/23 00:40 Room Air 04/04/23 01:43 04/04/23 00:14 04/03/23 23:45 04/03/23 23:15 04/03/23 23:00 0 04/03/23 22:43 04/03/23 22:21 Room Air 04/03/23 20:25 04/03/23 20:21 Room Air 04/03/23 20:21 Room Air 04/03/23 19:29 Room Air
--- NOTE | 2023-04-04 07:16 | Electrocardiogram Report ---
Test Reason : Blood Pressure : / mmHG Vent. Rate : 075 BPM Atrial Rate : 075 BPM P-R Int : 146 ms QRS Dur : 086 ms QT Int : 414 ms P-R-T Axes : 062 -34 063 degrees QTc Int : 462 ms Normal sinus rhythm Left axis deviation Prolonged QT Abnormal ECG When compared with ECG of 15-APR-2022 17:11, No significant change was found Confirmed by Dakota Hernandez ([id number]) on 04/04/2023 7:15:47 AM Referred By: REFERRED SELF Confirmed By:Osvaldo Hernandez
[2023-04-04 08:18] LABS: White Blood Count 0.26 K/ul (4.8-10.8)
[2023-04-04 08:19] LABS: Platelet Count 10 K/uL (130-400)
[2023-04-04 08:24] LABS: BUN Creatinine Ratio 31.6 (10-20); Calcium 7.2 mg/dl (8.6-10.3); Est GFR (African American) 86.1 ml/min; Est GFR (Non-African American) 74.2 ml/min; Magnesium 1.5 mg/dl (1.7-2.4); Phosphorus 3.2 mg/dl (2.5-4.9); Potassium 3.5 mmol/L (3.5-5.1)
[2023-04-04 08:38] LABS: INR 1.1 (0.9-1.1); Prothrombin Time 11.9 Seconds (9.0-12.0)
[2023-04-04] MEDS: PANTOprazole 40 MG TAB PO SCH ×2 (08:44→20:51)
[2023-04-04] MEDS: ACYCLOVIR 200 MG CAP PO SCH ×2 (08:44→20:51)
[2023-04-04 08:49] LABS: Vitamin B12 476 pg/ml (180-914)
[2023-04-04] MEDS ORDERED: VITAMIN B COMPLEX TAB PO SCH (09:00)
[2023-04-04] MEDS ORDERED: METOPROLOL SUCC 25MG EXT REL TAB PO SCH (09:00)
[2023-04-04] MEDS ORDERED: CHOLECALCIFEROL 1,000 UNITS 25 MCG TAB PO SCH (09:00)
[2023-04-04] MEDS ORDERED: TOCOPHERYL, DL-ALPHA 100 UNITS 67 MG CAP PO SCH (09:00)
[2023-04-04] MEDS ORDERED: POLYETHYLENE (MIRALAX) 17 GM PACK PO SCH (09:00)
[2023-04-04] MEDS ORDERED: ROSUVASTATIN CALCIUM 10 MG TAB PO SCH (09:00)
[2023-04-04] MEDS ORDERED: CEROVITE ADV FORMULA TAB PO SCH (09:00)
[2023-04-04] MEDS ORDERED: ZINC SULFATE 220 MG CAPSULE PO SCH (09:00)
[2023-04-04 09:08] LABS: Hemoglobin 5.5 g/dl (14.0-18.0); Mean Corpuscular Hemoglobin 32.5 pg (25.0-34.0); Mean Corpuscular Hgb Conc 34.4 g/dL (32.0-36.0); Mean Corpuscular Volume 94.7 fL (80.0-100.0); RDW Coefficient of Variation 16.8 % (11.5-14.5); Red Blood Count 1.69 M/uL (4.70-6.10)
[2023-04-04] MEDS ORDERED: SODIUM CHLORIDE 0.9% 250 ML IV PRN ×3 (09:25→19:07)
--- NOTE | 2023-04-04 12:25 | Hospitalist Progress Note ---
Date of Service April 04, 2023 Assessment & Plan (1) Severe thrombocytopenia: Plan: 82 M with myelodysplastic syndrome currently on chemotherapy who presents to the ER from outpatient clinic with anemia. Admitted to the hospital for pancytopenia marked by severe thrombocytopenia and anemia. Pancytopenia -Discovered on outpatient labs. Occurring in the setting of ongoing chemotherapy for AML/myelodysplastic syndrome. Follows with Dr. Kwong of [facility] and Dr. Obrien at [facility]. -WBC 0.49, hemoglobin 6.1, platelet count-0 on admission. Patient hemodynamically stable. -Anemia mildly symptomatic with mild shortness of breath. Saturating well on room air. -S/p 1 unit pRBC, platelet pheresis in the ED on admission. Case discussed with oncologist, who is aware and recommended admission for further management. -Now hgb down to 5.5 after 1 unit PRBCs and IVFs -transfuse 2 more units PRBCs-his threshold he says is 8 for hgb as per Dr[address] Kwong -plts up to 10 and will transfuse for threshold<10, with some petechiae but no bleeding * Neutropenic precautions ordered. * oncology) consult appreciated * Vitamin B complex * Trend CBC. Transfusion/platelet pheresis support as needed Acute myeloid leukemia/MDS -Chronic; sees Dr. Kwong and Dr. Obrien of [facility]. Completed latest cycle of chemotherapy (2 weeks on, 2 weeks off) last month with azacitidine/venetoclax. -Bone marrow biopsy from 03/04/2022: Myelodysplastic syndrome with excess blasts- 2, hypercellular marrow with trilineage hematopoiesis, hemophagocytosis and absent iron stores. 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 -AML in remission as of 02/11/2023, per last [facility] oncology note. Last [facility] oncology note: "Has achieved an MRD negative remission state following 1 cycle of Aza/Nicko. He has a hypercellular marrow with return of his baseline dysplasia, but this remains MRD negative for AML despite treatment hold." * Holding home venetoclax * Continue antimicrobial prophylaxis: Acyclovir, levofloxacin, posaconazole-he brought in from home-will have pharmacy relabel for hospital use. No fevers Coronary artery disease/history of CABG/hypercholesterolemia -CABG x3 in November 2006. Seen twice yearly by Dr. Hammond. -Excellent BP control, LDL cholesterol controlled. CAD considered quiescent on his current medical regimen. * Continue home metoprolol succinate 12.5 mg daily * Continue home rosuvastatin 10 mg daily Zinc deficiency * Continue home zinc sulfate 220 mg p.o. daily. Hypomagnesemia-Mg 1.5-replace with 2 grams IV mag today follow level in AM Code: Full code Dispo: Med-Surg continued stay, dc to home tomorrow if blood counts appropriate FEN/GI: Heart healthy DVT Prophylaxis: none due to severe thrombocytopenia and anemia, petechiae on legs so no SCDs/TEDs (2) Pancytopenia due to antineoplastic chemotherapy: (3) Hx of CABG: (4) CAD (coronary artery disease): (5) Leukopenia due to antineoplastic chemotherapy: (6) Myelodysplastic syndrome: (7) Symptomatic anemia: (8) Hypercholesterolemia: Admission and Anticipated Discharge Date Admission Date: April 03, 2023 Subjective feeling much better since getting PRBC transfusions. No bleeding from anywhere but has bruising and petechiae on legs. denies CP, SOB, lightheadedness with standing. has been ambulating to the bathroom and back independently Physical Exam Constitutional: WD/WN, vitals as above Respiratory: normal respiratory effort, lungs clear to auscultation Cardiovascular: RRR, no murmur, no edema (except trace pitting edema ankles) Gastrointestinal (Abdomen): normal bowel sounds, soft, nontender, no hepatosplenomegaly Skin: + ecchymosis (and petechiae on legs) Psychiatric: A+Ox3, euthymic affect Results & Data Results & Data Vital Signs (Past 12 Hours) Vital Signs Temp Pulse Pulse Resp BP BP Pulse Ox 04/04/23 12:00 36.8 C 66 18 92/56 L 99 04/04/23 10:47 37.1 C 69 18 96/61 L 99 04/04/23 10:30 36.8 C 79 18 93/57 L 99 04/04/23 10:14 37 C 79 16 81/47 L 99 04/04/23 08:42 36.7 C 72 18 100/62 99 04/04/23 07:52 37.3 C 82 95 04/04/23 05:05 37.0 C 71 18 114/73 99 04/04/23 04:45 36.7 C 76 18 122/76 99 04/04/23 03:45 37.0 C 76 16 95/57 L 95 04/04/23 02:45 36.8 C 69 16 118/74 99 04/04/23 02:15 37.1 C 78 18 117/76 94 04/04/23 02:00 36.9 C 72 18 122/78 98 04/04/23 00:40 36.7 C 79 18 110/69 97 04/04/23 01:43 37.0 C 71 18 107/69 98 O2 Del Method 04/04/23 12:00 04/04/23 10:47 04/04/23 10:30 04/04/23 10:14 04/04/23 08:42 Room Air 04/04/23 07:52 Room Air 04/04/23 05:05 04/04/23 04:45 04/04/23 03:45 04/04/23 02:45 04/04/23 02:15 04/04/23 02:00 04/04/23 00:40 Room Air 04/04/23 01:43 Laboratory Results CBC, BMP, magnesium reviewed PG Care Time/CCT Total # of Minutes Spent Total Time Spent with Patient: Total time spent is greater than 50% in coordination of care (as documented) at patient's floor/unit and/or counseling patient: Coding Level of Care Code 94523 SUB INP/OBS CARE 2/35MIN Diagnoses Severe thrombocytopenia D69.6 Pancytopenia due to antineoplastic chemotherapy D61.810; T45.1X5A Hx of CABG Z95.1 CAD (coronary artery disease) I25.10 Leukopenia due to antineoplastic chemotherapy D70.1; T45.1X5A Myelodysplastic syndrome D46.9 Symptomatic anemia D64.9 Hypercholesterolemia E78.00
[2023-04-04] MEDS: MAGNESIUM SULFATE / D5W 1 GM/100 ML BAG IV SCH ×2 (13:31→15:18)
[2023-04-04 18:54] LABS: White Blood Count 0.37 K/ul (4.8-10.8)
[2023-04-04 18:55] LABS: Hematocrit (blood only) 20.4 % (42.0-52.0); Hemoglobin 7.1 g/dl (14.0-18.0); Mean Corpuscular Hemoglobin 31.6 pg (25.0-34.0); Mean Corpuscular Hgb Conc 34.8 g/dL (32.0-36.0); Mean Corpuscular Volume 90.7 fL (80.0-100.0); Mean Platelet Volume 9.4 fL (9.4-12.4); Platelet Count 7 K/uL (130-400); RDW Coefficient of Variation 15.8 % (11.5-14.5); RDW Standard Deviation 51.2 fL (36.4-46.3); Red Blood Count 2.25 M/uL (4.70-6.10)
[2023-04-04] MEDS ORDERED: POLYETHYLENE (MIRALAX) 17 GM PACK PO PRN (19:29)
--- NOTE | 2023-04-04 20:35 | Billing Data ---
Date of Service April 04, 2023 Coding Level of Care Code 72381 INT INP/OBS CARE
[2023-04-04] MEDS ORDERED: levoFLOXacin 250 MG TABLET PO SCH (21:00)
[2023-04-04] MEDS ORDERED: [UNRECOGNIZED DRUG - OTHER] TOP SCH (21:00)
[2023-04-04] MEDS ORDERED: MELATONIN 3 MG TAB PO SCH (21:00)
[2023-04-04] MEDS ORDERED: ASCORBIC ACID 500 MG TAB PO SCH (21:00)
[2023-04-04] MEDS ORDERED: POSACONAZOLE PO SCH (22:00)
--- NOTE | 2023-04-05 03:58 | Communication Note ---
Date of Service: April 05, 2023 3:37 received notice that patient was trying to leave AMA. Patient found looking for exit in 3W hallway. Patient states that he had his blood and platelet tr ansfusions and it was time for him to continue on with his life, states he had [facility] and an oncology appointment tomorrow and saw no further reason to stay in the hospital. Patient states he felt stronger after his latest transfusions. States he is familiar with his cancer and does not see a reason for further labs or blood transfusion. Discussed with patient that based on his current condition he has a high chance of bleeding, passing out, or dying should he leave the hospital, and that I cannot safely discharge him at this time. Patient states he understands this, and if he dies it will be his time to go, but he would still leave. Confirmed with patient he is orientedx3, aware of his home address. Patient states no one lives with him at home, he has no friends or family nearby, no one from [facility] will check up on him. Emphasized to patient if he develops weakness trouble breathing or other concerning symptoms to call 911 for assistance, patient states he is aware and has his phone on him. Patient has signed AMA form. Nursing to walk him to the entrance.
--- NOTE | 2023-04-05 07:38 | Discharge Summary ---
Discharge Summary Date of Service April 05, 2023 Notes For Next Care Provider Medication Changes From Visit None Admission HPI Per Admitting Provider Barron is a very pleasant 82-year-old man with history of recently diagnosed myelodysplastic syndrome currently on chemotherapy who presented from the [facility] (2 weeks on, 2 weeks off) after his hemoglobin was revealed to be 6.1. He usually gets thrice weekly surveillance labs but was unable to this week until Thursday as he had been traveling. His only complaint on admission is severe shortness of breath and swollen legs, which is baseline for him. He does admit to a small headache but attributes that to being hungry. He denies fever, or shaking chills, chest pain, abdominal pain, nausea, or diarrhea/constipation. In the emergency room, he was found to be hemodynamically stable. Repeat CBC showed hemoglobin of 6.0, WBC-0.49, and a platelet count of 0 (usual range 12 K 40 K). Total bilirubin was mildly elevated at 1.2 on CMP. Otherwise, the rest of his metabolic panel was within normal limits or stable. He received platelet pheresis in the ED 1 unit of packed RBCs was ordered but had to be transfused at the time of admission. Principal Dx & Hospital Course #1 = Principal Diagnosis (1) Severe thrombocytopenia: 82 M with myelodysplastic syndrome currently on chemotherapy who presents to the ER from outpatient clinic with anemia. Admitted to the hospital for pancytopenia marked by severe thrombocytopenia and anemia. Pancytopenia -Discovered on outpatient labs. Occurring in the setting of ongoing chemotherapy for AML/myelodysplastic syndrome. Follows with Dr. Kwong of [facility] and Dr. Obrien at [facility]. -WBC 0.49, hemoglobin 6.1, platelet count-0 on admission. Patient hemodynamically stable. -Anemia mildly symptomatic with mild shortness of breath. Saturating well on room air. -S/p 1 unit pRBC, platelet pheresis in the ED on admission. Case discussed with oncologist, who is aware and recommended admission for further management. -Now hgb down to 5.5 after 1 unit PRBCs and IVFs -transfused 2 more units PRBCs-his threshold he says is 8 for hgb as per Dr. Kwong--> hgb up to 7.1 after this--> gave 1 more unit PRBCs--> pt left AMA after this so no repeat CBC was done -plts went up to 10 after 1 unit and will transfuse for threshold<10, with some petechiae but no bleeding * Neutropenic precautions ordered. * oncology) consult appreciated * Vitamin B complex * Trend CBC. Transfusion/platelet pheresis support as needed * gave 1 more unit of platelets the evening of 04/04 for platelets back down to 7 on repeat Acute myeloid leukemia/MDS -Chronic; sees Dr. Kwong and Dr. Obrien of [facility]. Completed latest cycle of chemotherapy (2 weeks on, 2 weeks off) last month with azacitidine/venetoclax. -Bone marrow biopsy from 03/04/2022: Myelodysplastic syndrome with excess blasts- 2, hypercellular marrow with trilineage hematopoiesis, hemophagocytosis and absent iron stores. 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 -AML in remission as of 02/11/2023, per last [facility] oncology note. Last [facility] oncology note: "Has achieved an MRD negative remission state following 1 cycle of Aza/Nicko. He has a hypercellular marrow with return of his baseline dysplasia, but this remains MRD negative for AML despite treatment hold." * Holding home venetoclax * Continue antimicrobial prophylaxis: Acyclovir, levofloxacin, posaconazole-he brought in from home-will have pharmacy relabel for hospital use. No fevers * f/u with Oncology as routinely scheduled Coronary artery disease/history of CABG/hypercholesterolemia -CABG x3 in November 2006. Seen twice yearly by Dr. Hammond. -Excellent BP control, LDL cholesterol controlled. CAD considered quiescent on his current medical regimen. * Continue home metoprolol succinate 12.5 mg daily * Continue home rosuvastatin 10 mg daily Zinc deficiency * Continue home zinc sulfate 220 mg p.o. daily. Hypomagnesemia-Mg 1.5-replaced with 2 grams IV mag today follow level in AM-left AMA so was not drawn/repeated Code: Full code Dispo:PT LEFT AMA AT 0400 on 04/05/23 DVT Prophylaxis: none due to severe thrombocytopenia and anemia, petechiae on legs so no SCDs/TEDs (2) Pancytopenia due to antineoplastic chemotherapy: (3) Hx of CABG: (4) CAD (coronary artery disease): (5) Leukopenia due to antineoplastic chemotherapy: (6) Myelodysplastic syndrome: (7) Symptomatic anemia: (8) Hypercholesterolemia: Discharge Exam Pt not seen on date of discharge as he left AMA at 0400 Updated Medication List Medication Instructions Recorded Confirmed Type Epsom Salt Soak 1 ea topical QPM PRN .flare up 04/15/22 04/03/23 History Palmers Cream 1 applic topical QPM rash 04/15/22 04/03/23 History vitamin B complex 1 cap PO DAILY 05/27/22 04/03/23 History metoprolol succinate 25 mg 12.5 mg PO DAILY #90 tabs 10/22/22 04/03/23 Rx tablet,extended release 24 hr pantoprazole 20 mg tablet,delayed 20 mg PO BID #180 tabs 11/01/22 04/03/23 Rx release acetaminophen 500 mg tablet 1,000 mg PO Q6 PRN Pain, Moderate 12/16/22 04/03/23 History acyclovir 200 mg capsule 400 mg PO BID 12/16/22 04/03/23 History ascorbic acid (vitamin C) 500 mg 500 mg PO HS 12/16/22 04/03/23 History tablet (Vitamin C) mnqnkog-hrkaylroedzld-kcpiqtpt 250 1 tab PO Q6H PRN Headache 12/16/22 04/03/23 History mg-250 mg-65 mg tablet (Excedrin Migraine) levofloxacin 250 mg tablet 250 mg PO HS 12/16/22 04/03/23 History melatonin 10 mg tablet 10 mg PO HS 12/16/22 04/03/23 History utrnjshe-qw-disxi 300 mcg-K 60 1 tab PO DAILY 12/16/22 04/03/23 History mcg-lycop 600 mcg-lutein 300 mcg tablet (Centrum Silver Men) ondansetron 8 mg disintegrating 8 mg PO Q8H PRN Nausea 12/16/22 04/03/23 History tablet polyethylene glycol 3350 17 17 g PO DAILY 12/16/22 04/03/23 History gram/dose oral powder (Miralax) posaconazole 100 mg tablet,delayed 300 mg PO DAILY 12/16/22 04/03/23 History release rosuvastatin 10 mg tablet 10 mg PO DAILY #90 tabs 12/16/22 04/03/23 Rx triamcinolone acetonide 0.025 % 1 applic topical BID PRN Itching 12/16/22 History topical cream venetoclax 10 mg tablet 20 mg PO DAILY 12/16/22 04/03/23 History venetoclax 50 mg tablet 50 mg PO DAILY 12/16/22 04/03/23 History vitamin E 50 unit capsule 1 unit PO DAILY 12/16/22 04/03/23 History zinc sulfate 50 mg zinc (220 mg) 50 mg PO DAILY 12/16/22 04/03/23 History capsule cholecalciferol (vitamin D3) 25 0 mcg PO DAILY 04/03/23 04/03/23 History mcg (1,000 unit) tablet (Vitamin D3) Hospital Stay Data Consultations 04/03/23 22:07 ED Decision to Admit Stat 04/04/23 00:03 Consult Oncology Routine Pending Results Patient Have Any Pending Studies at Discharge: Yes Total Time Total Time Spent Total Time Spent (In Minutes): 15 min Coding Level of Care Code None Diagnoses Severe thrombocytopenia D69.6 Pancytopenia due to antineoplastic chemotherapy D61.810; T45.1X5A Hx of CABG Z95.1 CAD (coronary artery disease) I25.10 Leukopenia due to antineoplastic chemotherapy D70.1; T45.1X5A Myelodysplastic syndrome D46.9 Symptomatic anemia D64.9 Hypercholesterolemia E78.00
[2023-04-05] MEDS ORDERED: POSACONAZOLE PO SCH (09:00)
== END 2023-04-05 03:55 | disposition left against medical advice (07) | DRG 809 ==
LOC: ED 19:28 → 3E 22:57 → SUATTDRO 22:57 → 3E 23:58